=== PATIENT | male | born 1950 | race Caucasian/White ===

== ENCOUNTER 2021-11-29 | Inpatient (IN) | payer MEDICARE, SELFPAY ==
[2021-11-29] VITALS (27 sets, daily range): BP systolic 115–167; BP diastolic 65–90; PULSE 49–70; RESP 14–18; TEMP 36.6–36.7; O2SAT 93–97; BMI 35.6
[2021-11-29 02:18] LABS: Coronavirus 19, PCR Not Detected (NotDetected); Influenza A, PCR Not Detected (NotDetected); Influenza B, PCR Not Detected (NotDetected)
--- NOTE | 2021-11-29 05:21 | PC.NURSE ---
Pt arrived to floor via EMS from [facility] on Nitro gtt @ 25 mcg/min. Pt denied any CP and continues to deny any at this time. Nitro gtt titrated per protocol. It is currently on stand by at this time. BP is stable at this time. HR is bradycardic. Pt is NPO and has a cardiac consult this AM.
--- NOTE | 2021-11-29 05:22 | CA_ITS ---
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 Ht: 6 ft 2 in Wt: 308lbs BSA: 2.61 BP: 154/80 mmHg Indications: Chest Pain, Diabetes, Hyperlipidemia, Hypertension/HDD, exsmoker 2D Dimensions Aortic Root 1.86 cm LA Volume 66.40 mL LA Volume Index 25.40 mL/m2 (M/F) 16-34 M-Mode Dimensions RVDd 2.68 cm (0.9-2.6) LA Diam 4.46 cm (1.9-4.0) LVDd 5.57 cm (3.5-5.7) Ao Diam 4.74 cm (2.0-3.7) LVDs 3.52 cm (3.5-5.7) IVSd 2.44 cm (0.6-1.1) PWd 1.12 cm (0.6-1.1) EF (Teich) 66.00% FS 36.80% EDV (Teich) 151.80 mL TAPSE 2.84 (<1.7) ESV (Teich) 51.60 mL LV Diastology E Decel Time 223.00 (160-240 msec) E/A Ratio 0.74 MED E' 5.70 (< 7 cm/sec) MED A' 8.40 cm/s E'/MED E' Ratio 13.98 (>14) LAT E' 5.90 (<10 cm/sec) LAT A' 10.40 cm/s E/LAT E' Ratio 13.51 (>14) Aortic Valve LVOT Max 132.00 (70-110 cm/s) LVOT VTI 29.56 cm AoV Peak Marek. 154.00 (50-130 cm/s) AI PHT 459.00 ms AO Peak GR. 9.60 mmHg AO Mean GR. 5.30 (<5 mmHg) AO VTI 34.06 (18-25 cm) Mitral Valve MV A Velocity 108.00 (40-130 cm/s) E/A Ratio 0.74 MV Decel. Time 223.00 (160-240 ms) Pulmonary Valve PV Peak Velocity 118.00 (50-150 cm/s) Tricuspid Valve TR P. Velocity 147.00 cm/s RAP Estimate 10.00 mmHg RVSP 18.60 mmHg Left Ventricle Left atrium is mildly enlarged, left ventricle is normal size mild concentric left ventricular hypertrophy, estimated ejection fraction 55% with no regional wall motion abnormality, grade 1 diastolic dysfunction seen without tissue Doppler evidence of raise left atrial pressure. Right Ventricle Right atrium and right ventricle are mildly enlarged with normal contractility. Aortic Valve Aortic valve is thickened and calcified without aortic stenosis or aortic insufficiency. Mitral Valve Mitral valve has mitral annular calcification, leaflets are minimally thickened, there is mild mitral regurgitation. Tricuspid Valve Tricuspid grossly normal, there is mild tricuspid regurgitation, tricuspid regurgitation jet velocity is inadequate for calculation of the right ventricular systolic pressure. Pulmonic Valve Pulmonic valve is poorly visualized. Great Vessels Aortic root is normal size. Inferior vena cava is poorly visualized. Pericardium No significant pericardial effusion noted. Conclusion 1. Mild biatrial enlargement, normal left ventricular size, mild concentric left ventricular hypertrophy, estimated ejection fraction 55% with no regional wall motion abnormality, grade 1 diastolic dysfunction seen without tissue Doppler evidence of raise left atrial pressure. 2. Mildly enlarged right ventricle with normal contractility. 3. Mild mitral and tricuspid regurgitation. 4. No significant pericardial effusion noted. Electronically signed by : Abdulaziz Pickering MD 11/29/2021 13:12:06
[2021-11-29 06:23] LABS: Chol/HDL Ratio 3.8 (1-3.5); Cholesterol 121 mg/dl (140-200); HDL Cholesterol 32 mg/dl (40-60); Triglycerides 92 mg/dl (30-150); VLDL Cholesterol 18 mg/dL (0-40)
[2021-11-29 06:25] LABS: Anion Gap 10.9 mEq/L (5-15); Basophils # 0.4 K/mm3 (0-0.2); Basophils % 1.2 % (0.1-2.0); Blood Urea Nitrogen 20 mg/dl (9-20); Calcium 7.9 mg/dl (8.4-10.2); Carbon Dioxide 29 mmol/L (22.0-30.0); Chloride 102 mmol/L (98-107); Creatinine Clearance Estimated 130 mL/min (50-200); Eosinophils # 0.1 K/mm3 (0.0-0.4); Eosinophils % 0.4 % (0.1-12.0); Estimated Glomerular Filt Rate 83 ml/min (>60); GFR (African American) 100 ML/MIN (>60); Glucose 150 mg/dl (74-100); Hematocrit 41.3 % (42.0-52.0); Hemoglobin 13.3 g/dL (14.1-18.0); Lymphocytes % 79.7 % (10-50); Mean Corpuscular HGB Conc 32.3 g/dL (31.8-35.4); Mean Corpuscular Hemoglobin 29.5 pg (27.0-31.2); Mean Corpuscular Volume 91.4 fl (80-94); Monocytes # 0.6 K/mm3 (0.1-1.0); Monocytes % 1.8 % (1.7-9.3); Neutrophils # 5.5 K/mm3 (1.8-7.8); Neutrophils % 16.9 % (37.0-80.0); Platelet Count 154 K/mm3 (142-424); Potassium 3.9 mmoL/L (3.5-5.1); Red Blood Count 4.52 M/mm3 (4.60-6.20); Red Cell Distribution Width 13.4 % (11.5-17.5); Sodium 138 mmol/L (136-145); White Blood Count 32.6 K/mm3 (4.8-10.8)
[2021-11-29 06:27] LABS: MANUAL DIFFERENTIAL MANUAL DIFFERENTIAL (MANUAL DIFF)
--- NOTE | 2021-11-29 06:27 | PC.NURSE ---
Nitro currently infusing @ 10 mcg/min. See titration. 0017 arrived on 25 mcg/min 0100 20 mcg/min 0130 15 mcg/min 0230 10 mcg/min 0300 standby 0600 10 mcg/min
[2021-11-29 06:34] LABS: Direct LDL Cholesterol 72.48 mg/dL (100-129); Lymphocytes % 84 % (10-50); Neutrophils % 16 % (42-76); Platelet Estimate Normal; RBC Morphology Normal; Total Cells Counted 100
[2021-11-29 06:39] LABS: Troponin I < 0.01 ng/ml (0.00-0.034)
--- NOTE | 2021-11-29 06:58 | PC.NURSE ---
Nitro titrated to 15 mcg/min
--- NOTE | 2021-11-29 07:27 | P.CONPHA_ITS ---
[facility] Pharmacy VTE Monitoring Patient Demographics Admission date: 11/29/21 Report Date: 11/29/21 Time: 07:27 Patient Allergies No Known Allergies Allergy (Verified 11/29/21 00:51) Height: 1.98 m Weight: 139.843 kg VTE Risk Labs: VTE Related Lab Results Hgb 13.3 g/dL (14.1-18.0) L 11/29/21 05:38 Hct 41.3 % (42.0-52.0) L 11/29/21 05:38 Plt Count 154 K/mm3 (142-424) 11/29/21 05:38 BUN 20 mg/dl (9-20) 11/29/21 05:38 Creatinine 0.90 mg/dl (0.66-1.25) 11/29/21 05:38 Estimated Creat Clear 130 mL/min (50-200) 11/29/21 05:38 Prophylaxis VTE Prophylaxis Ordered?: Yes Types of VTE Prophylaxis: TEDS Knee High Location of Applied Device: Bilateral Lower Extremeties
--- NOTE | 2021-11-29 08:58 | EXP.HP ---
History of Present Illness *Admission Date: 11/29/21 *Reason for visit:: chest pain, hypertensive emergency *History of present illness: 71 yo male noted onset of substernal chest pressure and presented to [facility] ER, found to be markedly hypertensive at 240/108. Troponins negative there, was transferred to [facility] for cardiology evaluation. Denies hx coronary disease. Does have co-morbid hypertension, diabetes, hyperlipidemia, and chronic lymphocytic leukemia. His baseline WBC is in the 30 thousand range. No active treatment for this. [facility] Medical History (Updated 11/29/21 @ 11:17 by Kelly Alvarado APRN) Arrhythmia Diabetes mellitus, type 2 Hyperlipidemia Hypertension Leukemia Skin cancer Surgical History (Updated 11/29/21 @ 01:19 by Dafne De La Paz, RN) No significant past surgical history Family History (Updated 11/29/21 @ 01:21 by Dafne De La Paz, RN) Other Family history of cancer Family history of diabetes mellitus type II Family history of hyperlipidemia Family history of hypertension Family history of leukemia Family history of myocardial infarction Social History (Updated 11/29/21 @ 01:23 by Dafne De La Paz, RN) Smoking Status: Former smoker years smoked: 40 alcohol intake: former current occupational status: employed Travel in the last 8 weeks: None Review of Systems Constitutional Constitutional: Reports fatigue Eyes Eyes: Reports system reviewed and no additional complaints, except as documented ENT Ears, Nose, Mouth, and Throat: Reports system reviewed and no additional complaints, except as documented *Cardiovascular Cardiovascular: Reports chest pain and Denies syncope *Respiratory Respiratory: Reports system reviewed and no additional complaints, except as documented *Gastrointestinal Gastrointestinal: Reports system reviewed and no additional complaints, except as documented *Genitourinary Genitourinary: Reports system reviewed and no additional complaints, except as documented *Musculoskeletal Musculoskeletal: Reports system reviewed and no additional complaints, except as documented Integumentary/Breasts Skin/Breast: Reports system reviewed and no additional complaints, except as documented *Neurologic Neurologic: Reports system reviewed and no additional complaints, except as documented and Denies syncope Psychiatric Psychiatric: Reports system reviewed and no additional complaints, except as documented Endocrine Endocrine: Reports system reviewed and no additional complaints, except as documented and Reports fatigue Hematologic/Lymphatic Hematologic/Lymphatic: Reports as per HPI Allergic/Immunologic Allergic/Immunologic: Reports system reviewed and no additional complaints, except as documented Meds Home Medications and Allergies Home Medications Medication Instructions Recorded Confirmed Type carvedilol 25 mg tablet 25 mg PO BID Hypertension 11/29/21 11/29/21 History diltiazem HCl 180 mg 180 mg PO DAILY HEART RATE 11/29/21 11/29/21 History capsule,extended release 24 hr, controlled (DILT-XR) furosemide 40 mg tablet 40 mg PO DAILY Fluid 11/29/21 11/29/21 History glipizide 5 mg tablet, extended 5 mg PO BID Diabetes 11/29/21 11/29/21 History release 24 hr hydralazine 50 mg tablet 50 mg PO QID Hypertension 11/29/21 11/29/21 History metformin 500 mg tablet 1,000 mg PO BID Diabetes 11/29/21 11/29/21 History pravastatin 40 mg tablet 40 mg PO DAILY Cholesterol 11/29/21 11/29/21 History valsartan 160 mg tablet 160 mg PO DAILY Hypertension 11/29/21 11/29/21 History New Prescriptions to Start Prescriptions: Allergies Allergy/AdvReac Type Severity Reaction Status Date / Time No Known Allergies Allergy Verified 11/29/21 00:51 Exam Data for Last 24 hours Vital signs and Labs for Last 24 Hours: Temp Pulse Resp BP Pulse Ox 98.1 F 51 L 16 150/73 H 97 11/29/21 04:00 11/29/21 08:00 11/29/21 08:00 11/29/21 08:00 11/29/21 08:00 L
--- NOTE | 2021-11-29 09:06 | CA_ITS ---
FINAL REPORT CLINICAL HISTORY: HTN,DM FINDINGS: Aorta velocity: 79 cm/sec Right kidney: 12.0 cm. No evidence of hydronephrosis or mass. Right intrarenal RI: 0.59 Right renal artery velocity: 145 cm/sec. Right RAR (Renal artery-Aortic Ratio): 1.82 Left Kidney: 13.0 cm. No evidence of hydronephrosis or mass. Left intrarenal RI: 0.75 Left renal artery velocity: 82 cm/sec. Left RAR (Renal Artery-Aortic Ratio): 1.03 IMPRESSION: No evidence of significant renal artery stenosis. CT angiogram or postcontrast MR angiogram would be more sensitive for evaluation of possible renal artery stenosis. Reviewed, Interpreted and Dictated by Tucker Dias MD Transcribed by Erickson Berumen Authenticated and . [facility]
--- NOTE | 2021-11-29 10:00 | PC.NURSE ---
0940- Nitro drip dc'd per MD order, changed to cardene drip at this time, 5mg/hr, current bp 155/68 map 97, HR 49
--- NOTE | 2021-11-29 11:08 | EXP.CARD.CON ---
History of Present Illness History of Present Illness Consult date: 11/29/21 Requesting physician: Blake Clark Consult reason: chest pain Chief complaint: chest pain, htn Additional Medical History:: Past Medical Hx NIDDM HLD HTN Leukemia Chronic Venous Stasis and bilateral LE edema 1st degree av block History of present illness: 71 year old white male with above past medical hx presented to [facility] ER yesterday with complaint on midsternal chest tightness and BP elevated at 240/108 at home despite taking all meds as prescribed. Reports was in his usual state of health when developed progressive chest tightness yesterday prompting him to check BP. when noticed BP was that elevated went to ER. Upon presentation to ER EKG showed sinus tarun with 1st degree av block negative for acute ischemic changes. Trop was negative. patient was started on nitro drip and transferred to [facility] for cardiology eval. This morning BP improved to 140s and patient denies any chest pain currently. Denies soa. [facility] Medical History (Updated 11/29/21 @ 11:17 by Kelly Alvarado APRN) Arrhythmia Diabetes mellitus, type 2 Hyperlipidemia Hypertension Leukemia Skin cancer Surgical History (Updated 11/29/21 @ 01:19 by Dafne De La Paz RN) No significant past surgical history Family History (Updated 11/29/21 @ 01:21 by Dafne De La Paz RN) Other Family history of cancer Family history of diabetes mellitus type II Family history of hyperlipidemia Family history of hypertension Family history of leukemia Family history of myocardial infarction Social History (Updated 11/29/21 @ 01:23 by Dafne De La Paz RN) Smoking Status: Former smoker years smoked: 40 alcohol intake: former current occupational status: employed Travel in the last 8 weeks: None Review of Systems Review of Systems Review of systems:: pertinent systems reviewed and negative unless documented below *Cardiovascular Cardiovascular: Reports chest pain and Reports leg edema Comments: chronic lower extrmitity edema Exam Data for Last 24 hours Vital signs and Labs for Last 24 Hours: Temp Pulse Resp BP Pulse Ox 98.1 F 53 L 18 143/73 H 95 11/29/21 04:00 11/29/21 10:00 11/29/21 10:00 11/29/21 10:00 11/29/21 10:00 Laboratory Results - last 24 hr 11/29/21 02:10: SARS-CoV-2 (PCR) Not detected, Influenza A Untype (PCR) Not detected, Influenza Type B (PCR) Not detected 11/29/21 05:38: Sodium 138, Potassium 3.9, Chloride 102, Carbon Dioxide 29, Anion Gap 10.9, BUN 20, Creatinine 0.90, Estimated Creat Clear 130, Estimated GFR 83, Est GFR ( Amer) 100, Glucose 150 H, Calcium 7.9 L, Troponin I < 0.01 11/29/21 05:38: WBC 32.6 H*, RBC 4.52 L, Hgb 13.3 L, Hct 41.3 L, MCV 91.4, MCH 29.5, MCHC 32.3, RDW 13.4, Plt Count 154, MPV 8.0, Neut % (Auto) 16.9 L, Lymph % (Auto) 79.7 H, [place] % (Auto) 1.8, Eos % (Auto) 0.4, Baso % (Auto) 1.2, Neut # (Auto) 5.5, Lymph # (Auto) 26.0 H, [place] # (Auto) 0.6, Eos # (Auto) 0.1, Baso # (Auto) 0.4 H, Total Counted 100, Neutrophils % (Manual) 16 L, Lymphocytes % (Manual) 84 H, Platelet Estimate Normal, RBC Morphology Normal 11/29/21 05:38: Triglycerides 92, Cholesterol 121 L, LDL Cholesterol Direct 72.48 L, VLDL Cholesterol 18, HDL Cholesterol 32 L, Cholesterol/HDL Ratio 3.8 H I & O for Last 24 hours: Intake & Output 11/26/21 11/27/21 11/28/21 11/29/21 23:59 23:59 23:59 23:59 Intake Total Output Total 0 / 0 Balance Weight 308 lb 4.816 oz Constitutional Constitutional: no acute distress *Routine HEENT Exam Head: Present normocephalic Eye: Present EOMI and PERRL ENT: Present mucous membranes moist *Routine Neck Exam Neck: Present supple; Absent lymphadenopathy *Routine Respiratory Exam Respiratory: Present CTA bilaterally *Routine Cardiovascular Exam Comments: Tarun with 1st degree av block ntoed *Routine Abdominal Exam Abdominal: Present soft, normoactive bowel sounds and distended; Abse
--- NOTE | 2021-11-29 15:00 | PC.NURSE ---
ROUNDED ON PATIENT. NO CONCERNS OR QUESTIONS. EDUCATED ON PLAN OF CARE. ENCOURAGED THEM TO RING OUT NEEDED
--- NOTE | 2021-11-29 20:00 | PC.NURSE ---
bp 164/78, increased cardene drip to 15mg/hr (from 10mg/hr)
--- NOTE | 2021-11-29 22:00 | PC.NURSE ---
bp 132/67, decreased cardene drip to 10mg/hr
[2021-11-30] VITALS (25 sets, daily range): BP systolic 124–174; BP diastolic 52–96; PULSE 57–80; RESP 12–22; TEMP 36.6–36.9; O2SAT 92–99; BMI 35.4
--- NOTE | 2021-11-30 | IR_ITS ---
APPROVED REPORT Patient Location: Inpatient Automotive Artist: ISIDRO Henry RT (R) PROCEDURES Selective coronary angiogram4 Drug-eluting stent deployment to the proximal ramus intermedius Drug-eluting stent deployment to the proximal mid and distal first obtuse marginal artery of the circumflex artery INDICATION Unstable angina, Coronary artery disease Informed consent was obtained prior to the procedure. COMPLICATIONS None Estimated Blood Loss: Less than 10 mls TECHNIQUE One percent lidocaine used to anesthetize the right anterior aspect of the wrist. The right radial artery was accessed via the Seldinger technique. A 6 Italian sheath was placed in the right radial artery. 2.5 mg of verapamil, 800 mcg of nitroglycerin, 1mg Lidocaine and 5000 U Heparin were given through the arterial sheath. The papa catheter was also used to perform selective coronary angiogram. At the end the diagnostic angiogram therapeutic heparin was administered giving a therapeutic ACT and the guide catheter was placed in the left main artery followed by a Choice PT extra-support wire into the ramus intermedius. A 2.25 x 12 mm resolute Myles stent was deployed at 16 seth reducing the severe stenosis to 0%. MILAGROS-3 flow was present before and after the procedure. The wire was pulled back and then placed in the first obtuse marginal artery. Primary stenting with a 2.5 x 30 mm stent cannot be made. 2 mm x 12 mm noncompliant balloon cannot be advanced due to the calcified stenosis. Eventually a guide liner was required and a 1.5 x 12 mm compliant balloon was used to predilate the stenosis. This was followed by a 2 mm x 12 mm noncompliant balloon. An additional 2 mm x 12 mm noncompliant balloon was then advanced to the calcified area. The 2.5 x 30 mm Long Eddy resolute stent could not be delivered without the utilization of a guide liner. Eventually the stent was placed and deployed at 22 seth. An additional 2.5 x 12 mm resolute Myles stent was then placed distal to the stent yet still overlapping it and deployed at 20 seth. The balloon was brought back and deployed at 24 and then 28 seth. A 2.75 x 12 mm balloon followed by 3 mm x 12 mm balloon were both deployed at the area and deployed at 24 and then 20 seth failing to reduce the stenosis. A 3.25 x 8 mm noncompliant balloon was then deployed at 24 seth reducing the calcified stenosis to 0% with excellent stent expansion. MILAGROS-3 flow was present before and after the procedure. At the end of the procedure the apparatus was removed the sheath was removed and hemostasis was achieved using TR banding patient was transferred the postop putting in stable addition ANGIOGRAPHIC RESULTS The left main artery Normal The left anterior descending artery Has proximal eccentric 10% stenoses with mid vessel 20% stenoses The circumflex artery Is a codominant system and gives rise to a high ramus intermedius which has a proximal hazy 70% concentric stenosis. The first obtuse marginal artery has a proximal calcified 90% stenosis with a mid vessel 90% stenosis. This is a large vessel. The right coronary artery Is a codominant vessel and has a proximal concentric calcified 70% stenosis with additional 50 and 60% stenosis which extended to the mid segment The RUCKER ventriculogram reveals Not performed The left ventricular end-diastolic pressure Not measured IMPRESSION Coronary artery disease as described above Successful stenting of the ramus intermedius severe disease reduced to 0% with 1 drug-eluting stent Heavily calcified and recalcitrant first obtuse marginal artery stenosis which was eventually treated with high inflation balloon angioplasty and 2 contiguous drug-eluting stents reduci
--- NOTE | 2021-11-30 02:00 | PC.NURSE ---
pt's bp 124/60, decreased cardene drip to 7.5mg/hr
--- NOTE | 2021-11-30 07:09 | PC.NURSE ---
0630-bp 139/66, decreased cardene drip to 5mg/hr 0700-bp 153/75, increased cardene drip to 7.5mg/hr
--- NOTE | 2021-11-30 09:45 | EXP.CARD.PN ---
Subjective Subjective Date: 11/30/21 Time: 08:00 Principal diagnosis: htn urgency, unstable angina Interval history: BP has improved, attempting to wean off of cardene. Reports had 10 mins of chest pressure last night at rest. Plan for [facility] today. Echo 11/29/2021 Conclusion 1.? Mild biatrial enlargement, normal left ventricular size, mild concentric left ventricular hypertrophy, estimated ejection fraction 55% with no regional wall motion abnormality, grade 1 diastolic dysfunction seen without tissue Doppler evidence of raise left atrial pressure. 2.? Mildly enlarged right ventricle with normal contractility. 3.? Mild mitral and tricuspid regurgitation. 4.? No significant pericardial effusion noted. Renal artery ultrasound 11/29/2021 IMPRESSION: No evidence of significant renal artery stenosis. ? ? CT angiogram or postcontrast MR angiogram would be more sensitive for evaluation of possible renal artery stenosis. Exam Data for Last 24 hours Vital signs and Labs for Last 24 Hours: Temp Pulse Resp BP Pulse Ox 97.9 F 57 L 12 138/67 94 L 11/30/21 08:00 11/30/21 06:00 11/30/21 06:00 11/30/21 06:00 11/30/21 06:00 I & O for Last 24 hours: Intake & Output 11/27/21 11/28/21 11/29/21 11/30/21 23:59 23:59 23:59 23:59 Intake Total 1372 / 1372 1956 Output Total 800 / 800 0 / 0 Balance 572 / 572 1956 Weight 308 lb 4.816 oz 305 lb 12.8 oz Constitutional Constitutional: no acute distress *Routine HEENT Exam Head: Present normocephalic Eye: Present EOMI and PERRL ENT: Present mucous membranes moist *Routine Neck Exam Neck: Present supple; Absent lymphadenopathy *Routine Respiratory Exam Respiratory: Present CTA bilaterally *Routine Cardiovascular Exam Cardiovascular: Present RRR *Routine Abdominal Exam Abdominal: Present soft and normoactive bowel sounds; Absent tenderness *Routine Extremities Exam Extremities: Absent cyanosis, clubbing or edema *Routine Skin Exam Skin: Present warm; Absent rash *Routine Neurological Exam Neurological: Present alert and oriented X3 Progress Note: A&P Assessment and plan (1) Leukemia: Status: Acute (2) Diabetes: Status: Acute (3) HTN (hypertension): Status: Acute (4) HLD (hyperlipidemia): Status: Acute (5) Hypertensive urgency: Status: Acute (6) Unstable angina: Status: Acute Assessment and Plan Assessment and Plan for All Diagnoses:: Unstable angina in the setting of HTN urgency -Serial trops negative -EKG negative for ischemic changes -Symptoms have improved with BP control -Will continue to monitor symptoms, possible LHC later if symptoms persist or change 11/30- Patient had episode of midsternal chest pressure last night lasting about 10 mins. Will proceed with LHC today. Discussed risks vs. benefits, patient is agreeable. HTN urgency -Reports medication compliance -Renal artery duplex- negative -Nitro drip changed to cardene drip -Stop home dilt. Start valsartan 160mg QD -Hold BB due to bradycardia 11/30- Remains on cardene drip, continue to wean. anticipate increasing valsartan or diuretics, will wait until after LHC to do so depending on results of cath. Sinus Tarun -Was on dilt and Metoprolol. Patient denies hx of afib or arrhythmia. Hold Bb and Dilt. 11/30- Resolved HLD -LDL goal < 70. LDL 72. Continue statin Chronic LE edema -Echo- EF 55, DD grade 1 -Continue lasix 40mg QD Hx of Leukemia with Leukocytosis -WBC 32.6 -Will defer to primary service NIDDM -Continue Metformin -Defer to primary service. cv summary: continue to wean from cardene drip. LHC today. will adjust bp meds and diuretics post cath.
--- NOTE | 2021-11-30 09:49 | EXP.ACUTE.PN ---
Subjective *Date: 11/30/21 *Time: 10:40 Interval history: 71-year-old male patient sitting up in side of the bed, and stepdaughter present, he reports some chest pain and shortness of breath during the night. Cardene drip still infusing and attempting to wean off, current blood pressure 138/67. Renal artery duplex was negative. Plan for C today. Medical Exam Vital signs and Labs for Last 24 Hours: Temp Pulse Resp BP Pulse Ox 97.9 F 67 12 138/67 97 11/30/21 08:00 11/30/21 08:00 11/30/21 06:00 11/30/21 06:00 11/30/21 08:00 I & O for Labs for Last 24 Hours: Intake & Output 11/27/21 11/28/21 11/29/21 11/30/21 23:59 23:59 23:59 23:59 Intake Total 1372 / 1372 1956 Output Total 800 / 800 0 / 0 Balance 572 / 572 1956 Weight 308 lb 4.816 oz 305 lb 12.8 oz Head: Present atraumatic Eyes: Present as per HPI ENT: Present normal exam and mucous membranes moist Neck: Present full ROM and trachea midline Respiratory: Present accessory muscle use and CTA bilaterally Cardiac: Present Reg Rate and Rhythm GI: Present soft, tenderness and normal bowel sounds; Absent distention Extremities: Present normal inspection and full ROM; Absent tenderness or calf tenderness Skin: Present intact and dry; Absent cyanosis or jaundice Neuro: Present Cranial Nerve 2-12 Intact, Motor Function Intact and oriented x 3 Assessment and Plan *Assessment and plan (1) Sinus bradycardia: Status: Acute Category: Medical Code(s): R00.1 - Bradycardia, unspecified (2) 1st degree AV block: Status: Acute Category: Medical Code(s): I44.0 - Atrioventricular block, first degree (3) Diabetes: Status: Acute Category: Medical Code(s): E11.9 - Type 2 diabetes mellitus without complications (4) HTN (hypertension): Status: Acute Category: Medical Code(s): I10 - Essential (primary) hypertension (5) HLD (hyperlipidemia): Status: Acute Category: Medical Code(s): E78.5 - Hyperlipidemia, unspecified (6) Unstable angina: Status: Acute Category: Medical Code(s): I20.0 - Unstable angina (7) Hypertensive urgency: Status: Acute Category: Medical Code(s): I16.0 - Hypertensive urgency Assessment and plan all Dx Assessment and Plan All Dx:: 1. Plan for C today 2. Wean Cardene drip as tolerated 3. Cardiology following
--- NOTE | 2021-11-30 14:16 | PC.NURSE ---
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
--- NOTE | 2021-11-30 14:18 | PC.NURSE ---
late entry: at start of shift cardene drip was at 7.5mg/hr drip was decreased to 5mg/hr at 0945
[2021-11-30 14:24] LABS: CATHL Activated Clotting Time 319 SEC (74-125)
--- NOTE | 2021-11-30 17:44 | PC.NURSE ---
Late entry: air removed time 2ml 1600 2ml 1615 2ml 1630 2ml 1645 2ml 1700 2ml 1715 1740 band removed, incision cleansed with cholrhexadine swab and covered in telfa and tegaderm.
[2021-12-01] VITALS (8 sets, daily range): BP systolic 134–165; BP diastolic 67–82; PULSE 59–80; RESP 16–23; TEMP 36.6–36.8; O2SAT 96–99; BMI 35.9
--- NOTE | 2021-12-01 00:05 | PC.NURSE ---
bp 156/69, increased cardene drip to 7.5mg/hr
--- NOTE | 2021-12-01 07:15 | PC.NURSE ---
Cardene gtt OFF at this time due to infiltrated PIV.
--- NOTE | 2021-12-01 09:18 | EXP.CARD.PN ---
Subjective Subjective Date: 12/01/21 Time: 08:00 Principal diagnosis: htn urgency, unstable angina Interval history: s/p left heart cath, see report below. Denies chest pain or soa. BP 165/79 IMPRESSION Coronary artery disease as described above Successful stenting of the ramus intermedius severe disease reduced to 0% with 1 drug-eluting stent Heavily calcified and recalcitrant first obtuse marginal artery stenosis which was eventually treated with high inflation balloon angioplasty and 2 contiguous drug-eluting stents reducing severe to critical disease to 0% Persistent severe stenosis in the proximal mid codominant right coronary artery PLAN 1. Dual antiplatelet therapy 2. LDL less than 55 to be achieved with high intensity statin 3. Cardiac rehabilitation 4. This was a long complex case requiring lots of balloons and loss of radiation with contrast.? As a result the right coronary artery stenosis was not treated at this time.? The calcified lesion in the right coronary artery will best be treated with shockwave balloon.? Patient will be brought back to the Clinic Administrator in 2 weeks and will undergo outpatient elective shockwave lithotripsy to the right coronary artery followed by drug-eluting stenting. Exam Data for Last 24 hours Vital signs and Labs for Last 24 Hours: Temp Pulse Resp BP Pulse Ox 97.9 F 68 19 165/79 H 97 12/01/21 08:21 12/01/21 08:30 12/01/21 08:30 12/01/21 08:30 12/01/21 08:30 Laboratory Results - last 24 hr 11/30/21 13:45: Activated Clotting Time 319 H* I & O for Last 24 hours: Intake & Output 11/28/21 11/29/21 11/30/21 12/01/21 23:59 23:59 23:59 23:59 Intake Total 1372 / 1372 3668 / 3668 420 / 420 Output Total 800 / 800 901 / 1301 400 / 400 Balance 572 / 572 2767 / 2367 Weight 308 lb 4.816 oz 305 lb 12.8 oz 310 lb 11.2 oz Constitutional Constitutional: no acute distress *Routine Respiratory Exam Respiratory: Present CTA bilaterally and symmetric chest movement *Routine Cardiovascular Exam Cardiovascular: Present RRR, Normal S1 and Normal S2 *Routine Abdominal Exam Abdominal: Present soft and normoactive bowel sounds; Absent tenderness *Routine Extremities Exam Extremities: Present full ROM and normal capillary refill; Absent edema *Routine Skin Exam Skin: Present intact, dry and warm Detailed Neck Exam: Thyroids Thyroid: Absent bruit Progress Note: A&P Assessment and plan (1) Sinus bradycardia: Status: Acute (2) 1st degree AV block: Status: Acute (3) Diabetes: Status: Acute (4) HTN (hypertension): Status: Acute (5) HLD (hyperlipidemia): Status: Acute (6) Unstable angina: Status: Acute (7) Hypertensive urgency: Status: Acute Assessment and Plan Assessment and Plan for All Diagnoses:: Unstable angina in the setting of HTN urgency -Serial trops negative -EKG negative for ischemic changes -Symptoms have improved with BP control -Will continue to monitor symptoms, possible LHC later if symptoms persist or change 11/30- Patient had episode of midsternal chest pressure last night lasting about 10 mins. Will proceed with LHC today. Discussed risks vs. benefits, patient is agreeable. 12/01- s/p LHC see above. Received stent to ramus intermedius. Plan to bring back in 2 weeks to treat RCA HTN urgency -Reports medication compliance -Renal artery duplex- negative -Nitro drip changed to cardene drip -Stop home dilt. Start valsartan 160mg QD -Hold BB due to bradycardia 11/30- Remains on cardene drip, continue to wean. anticipate increasing valsartan or diuretics, will wait until after LHC to do so depending on results of cath. 12/01- Off of Cardene drip. BP 165/79. Will increase valsartan to 320mg QD. Continue Lasix 40mg BID Sinus Tarun- Resolved -Was on dilt and Metoprolol. Patient denies hx of afib or arrhythmia. Hold Bb and Dilt. 11/30- Resolved, will restart coreg 3.125 BID HLD -LDL goal < 55. LDL
--- NOTE | 2021-12-01 09:27 | EXP.DC.SUM ---
General Admission date:: 11/29/21 Discharge date: 12/01/21 HPI HPI HPI: 71 yo male noted onset of substernal chest pressure and presented to [facility] ER, found to be markedly hypertensive at 240/108. Troponins negative there, was transferred to [facility] for cardiology evaluation. Denies hx coronary disease. Does have co-morbid hypertension, diabetes, hyperlipidemia, and chronic lymphocytic leukemia. His baseline WBC is in the 30 thousand range. No active treatment for this. Hospital Course Hospital Course Hospital Course: 71 yo male noted onset of substernal chest pressure and presented to [facility] ER, found to be markedly hypertensive at 240/108. Troponins negative there, was transferred to [facility] for cardiology evaluation. Denies hx coronary disease. Does have co-morbid hypertension, diabetes, hyperlipidemia, and chronic lymphocytic leukemia. 11/30/21 Card Cath: ANGIOGRAPHIC RESULTS The left main artery Normal The left anterior descending artery Has proximal eccentric 10% stenoses with mid vessel 20% stenoses The circumflex artery Is a codominant system and gives rise to a high ramus intermedius which has a proximal hazy 70% concentric stenosis.? The first obtuse marginal artery has a proximal calcified 90% stenosis with a mid vessel 90% stenosis.? This is a large vessel. The right coronary artery Is a codominant vessel and has a proximal concentric calcified 70% stenosis with additional 50 and 60% stenosis which extended to the mid segment The RUCKER ventriculogram reveals Not performed The left ventricular end-diastolic pressure Not measured IMPRESSION Coronary artery disease as described above Successful stenting of the ramus intermedius severe disease reduced to 0% with 1 drug-eluting stent Heavily calcified and recalcitrant first obtuse marginal artery stenosis which was eventually treated with high inflation balloon angioplasty and 2 contiguous drug-eluting stents reducing severe to critical disease to 0% Persistent severe stenosis in the proximal mid codominant right coronary artery PLAN 1. Dual antiplatelet therapy 2. LDL less than 55 to be achieved with high intensity statin 3. Cardiac rehabilitation 4. This was a long complex case requiring lots of balloons and loss of radiation with contrast.? As a result the right coronary artery stenosis was not treated at this time.? The calcified lesion in the right coronary artery will best be treated with shockwave balloon.? Patient will be brought back to the [facility] in 2 weeks and will undergo outpatient elective shockwave lithotripsy to the right coronary artery followed by drug-eluting stenting. Electronically signed by : Jasiel Lauren MD? Cardiology has seen and recommends: Assessment and Plan for All Diagnoses:: Unstable angina in the setting of HTN urgency -Serial trops negative -EKG negative for ischemic changes -Symptoms have improved with BP control -Will continue to monitor symptoms, possible LHC later if symptoms persist or change 11/30- Patient had episode of midsternal chest pressure last night lasting about 10 mins. Will proceed with LHC today. Discussed risks vs. benefits, patient is agreeable. 12/01- s/p LHC see above. Received stent to ramus intermedius. Plan to bring back in 2 weeks to treat RCA HTN urgency -Reports medication compliance -Renal artery duplex- negative -Nitro drip changed to cardene drip -Stop home dilt. Start valsartan 160mg QD -Hold BB due to bradycardia 11/30- Remains on cardene drip, continue to wean. anticipate increasing valsartan or diuretics, will wait until after LHC to do so depending on results of cath. 12/01- Off of Cardene drip. BP 165/79. Will increase valsartan to 320mg QD. Continue Lasix 40mg BID Sinus Tarun- Resolved -Was on dilt and Metoprolol. Patient denies hx of afib or arrhythmia. Hold Bb and Dilt. 11/30- Resolved, will restart coreg 3.125 BID HLD -LDL goal < 55. LDL 72. Continue statin Chronic LE
--- NOTE | 2021-12-01 12:35 | HMH.PHACL ---
[facility] Oncology Research Rn Discharge Med Graphic Arts Technician: Benito Gauthier has received discharge medication counseling on the following medications: - Aspirin (take daily, monitor for any unusual bleeding, falls/hitting head should be looked at by a physician) - Brilinta (take twice daily, monitor for any unusual bleeding, falls/hitting head should be looked at by a physician) - Rosuvastatin (take daily, can cause muscle aches that do not correlate with any physical activity, previous statin was switched to this) - Valsartan (take daily, monitor for dizziness/BP) - Carvedilol (take twice daily, monitor for dizziness, dosage has been lowered from what he originally had) Patient verbalized understanding and had no additional questions except if he needs to dispose of all the other medications that had dosage changes or been discontinued. I advised patient to dispose of those medications so there is no confusion with any of the new medications.
--- NOTE | 2021-12-03 11:01 | CARE MANAGER ---
Attempted to contact patient related to hospital discharge x2. Left VM message. JOE Santos
== END 2021-12-01 12:42 | disposition home or self-care (01) | DRG 247 ==
PROVIDERS: Internal Medicine; Admitting Provider Emergency Medicine; PCP Nurse Practitioner Family; Visit Provider Emergency Medicine
PROC: 027136Z Dilation of Coronary Artery, Two Arteries with Three Drug-eluting Intraluminal Devices, Percutaneous Approach (ICD-10-PCS; principal; 2021-11-30 09:15)
DX: I25.110 Atherosclerotic heart disease of native coronary artery with unstable angina pectoris (principal); C91.10 Chronic lymphocytic leukemia of B-cell type not having achieved remission; I16.0 Hypertensive urgency; E11.9 Type 2 diabetes mellitus without complications; E78.5 Hyperlipidemia, unspecified; Z85.828 Personal history of other malignant neoplasm of skin; Z87.891 Personal history of nicotine dependence; Z79.84 Long term (current) use of oral hypoglycemic drugs; R00.1 Bradycardia, unspecified
CPT/HCPCS: 36415; 80048; 80061; 84484; 85007; 85025; 85347; 92928; 93306; 93454; 93976; 99152; 99153; C1725; C1760; C1769; C1876; C9600; C9803; J1644; Q9967; U0003; U0005

== ENCOUNTER → 2021-12-06 11:11 | Outpatient (CLI) | payer MEDICARE, SELFPAY ==
--- NOTE | 2021-12-06 11:12 | CA_ITS ---
FINAL REPORT TECHNIQUE: Graded compression, spectral analysis and ultrasound images of the venous system of the upper extremity were obtained. CLINICAL HISTORY: edema in left upper extremity, IV stick 11/28/21, IV removed 12/01/21. Pt on ASA 81 mg QD and Brilinta Pt had Lovenox in ER on 11/26/21 for LUE redness, edema and warm to touch L antecubital. FINDINGS: Venous thrombus in the left brachial vein. The jugular vein, subclavian vein, axillary vein, cephalic vein and basilic venous system are fully compressible and demonstrate no evidence of thrombosis. IMPRESSION: Left brachial vein venous thrombosis. Reviewed, Interpreted and Dictated by Alex Penaloza MD Transcribed by Erickson Berumen Authenticated and [facility]
== END ==
PROVIDERS: PCP Nurse Practitioner Family; Visit Provider Nurse Practitioner Family
DX: I10 Essential (primary) hypertension; I20.8 Other forms of angina pectoris; I44.0 Atrioventricular block, first degree; R00.1 Bradycardia, unspecified; R60.0 Localized edema; Z95.5 Presence of coronary angioplasty implant and graft; M79.602 Pain in left arm
CPT/HCPCS: 93971

== ENCOUNTER 2021-12-12 13:00 | Emergency (ER) | payer MEDICARE, SELFPAY ==
[2021-12-12] VITALS (9 sets, daily range): BP systolic 99–140; BP diastolic 46–70; PULSE 64–80; RESP 16–22; TEMP 36.6–37.1; O2SAT 96–98; BMI 38.4
--- NOTE | 2021-12-12 13:23 | XR_ITS ---
PROCEDURE INFORMATION: Exam: XR Chest Exam date and time: 12/12/2021 1:38 PM Age: 71 years old Clinical indication: Sternal or substernal pain; Prior surgery; Surgery date: 6+ months; Surgery type: Cardiac stents placed. Patient HX: Chest pain, patient is supposed to have another cardiac stent placed this coming Monday he stated. ; Additional info: Cp TECHNIQUE: Imaging protocol: Radiologic exam of the chest. Views: 1 view. COMPARISON: No relevant prior studies available. FINDINGS: Lungs: Unremarkable. No consolidation. Pleural spaces: Unremarkable. No pleural effusion. No pneumothorax. Heart/Mediastinum: Unremarkable. No cardiomegaly. Bones/joints: Unremarkable. IMPRESSION: No acute findings.
--- NOTE | 2021-12-12 13:25 | HMH.EDGENADL ---
Discharge Plan Disposition Patient Disposition: Home, Self-Care Condition: Good Prescriptions Prescriptions: No Action clopidogrel [Plavix] 75 mg tablet 75 mg PO DAILY Qty: 30 11RF Xarelto 20 mg tablet 20 mg PO DAILY Qty: 30 5RF Rx Instructions: must administer with evening meal Xarelto 15 mg tablet 15 mg PO BID 21 Days Qty: 42 0RF Rx Instructions: must administer with a meal/food metformin 500 mg tablet 1,000 mg PO BID Label Comments: TAKE 2 TABLETS BY MOUTH TWICE DAILY FOR DIABETES furosemide 40 mg tablet 40 mg PO DAILY Label Comments: TAKE 1 TABLET BY MOUTH ONCE DAILY IN THE MORNING glipizide 5 mg tablet extended release 24hr 5 mg PO BID Label Comments: TAKE 1 TABLET BY MOUTH TWICE DAILY WITH FOOD aspirin 81 mg capsule 81 mg PO DAILY Qty: 30 0RF carvedilol [Coreg] 3.125 mg tablet 3.125 mg PO BID Qty: 60 0RF Rx Instructions: must administer with a meal/food valsartan 320 mg tablet 320 mg PO DAILY Qty: 30 0RF rosuvastatin [Crestor] 40 mg tablet 40 mg PO DAILY Qty: 30 0RF Ozempic 0.25 mg or 0.5 mg(2 mg/1.5 mL) pen injector 0.25 mg SQ WEEKLY Qty: 1.5 1RF Rx Instructions: 0.25 weekly for 4 doses then 0.5 weekly Has CAD Referrals Follow up/Referrals: Mary Gauthier APRN [Primary Care Provider] - See instructions Activity Restrictions/Add. Instructions Additional Instructions/Restrictions: You have been evaluated for episodes of low blood pressure. This is likely due to the medications you take. Please check your blood pressure in the morning before taking carvedilol. It is very important that you follow-up with your primary care doctor as well as cardiology, Dr. Lauren. Return to the emergency department at once for any new or worsening symptoms, chest pain, lightheadedness, other concern Clinical Impressions Clinical Impression: Low blood pressure reading Instructions Patient Instructions: Blood Pressure Testing and Measurement Discharge ED Provider: Brunilda Welsh Adult HPI General Chief complaint: Recheck/Abnormal Lab/Rx Stated complaint: low blood pressure Time Seen by Provider: 12/12/21 13:02 Mode of Arrival: Ambulatory Source of Information: Patient Limitations: No Limitations History of Present Illness HPI narrative: 71-year-old male presenting to the emergency department with low blood pressure. Episode happened this morning. He checked his blood pressure in the morning, as he does regularly. His systolic blood pressure was less than 90. He had taken his blood pressure medication this morning, carvedilol and losartan. Checked it again a few minutes later and it was still low, less than 90. Denies feeling dizzy, lightheaded, weak. Has had sinus congestion and runny nose over the last few days, no other recent illness. No fevers, chills, rash, abdominal pain, nausea, vomiting. No changes to his medications. By arrival, blood pressure has normalized. Nothing this is ever happened before. Denies feeling lightheaded upon standing or other symptoms of orthostasis. Related Data Home Medications Medication Instructions Recorded Confirmed furosemide 40 mg tablet 40 mg PO DAILY Fluid 11/29/21 12/06/21 glipizide 5 mg tablet, extended 5 mg PO BID Diabetes 11/29/21 12/06/21 release 24 hr metformin 500 mg tablet 1,000 mg PO BID Diabetes 11/29/21 12/06/21 Previous Rx's Medication Instructions Recorded aspirin 81 mg capsule 81 mg PO DAILY #30 caps 12/01/21 carvedilol 3.125 mg tablet (Coreg) 3.125 mg PO BID #60 tabs 12/01/21 rosuvastatin 40 mg tablet (Crestor) 40 mg PO DAILY #30 tabs 12/01/21 semaglutide 0.25 mg or 0.5 mg (2 0.25 mg (0.2 mL) SQ WEEKLY #1.5 mL 12/01/21 mg/1.5 mL) subcutaneous pen injector (Ozempic) valsartan 320 mg tablet 320 mg PO DAILY #30 tabs 12/01/21 clopidogrel 75 mg tablet (Plavix) 75 mg PO DAILY #30 tabs 12/06/21 rivaroxaban 15 mg table
--- NOTE | 2021-12-12 13:37 | ECG_ITS ---
APPROVED REPORT Exam: Resting ECG HR:70 bpm ECG Measurements Heart Rate 70 AXES UT 199 P 35 QRSd 89 QRS 59 QT 387 T 71 QTc 407 Conclusion SINUS RHYTHM NORMAL ECG UNCONFIRMED REPORT Electronically signed by : Kayden Pal MD 12/12/2021 16:40:00
[2021-12-12 13:50] LABS: Coronavirus 19, PCR Not Detected (NotDetected); Influenza A, PCR Not Detected (NotDetected); Influenza B, PCR Not Detected (NotDetected)
[2021-12-12 14:00] LABS: Chloride 99 mmol/L (98-107); Sodium 139 mmol/L (136-145)
[2021-12-12 14:03] LABS: Alanine Aminotransferase 29 U/L (12-78); Albumin Level 3.8 g/dl (3.5-5.0); Albumin/Globulin Ratio 1.3 (1.1-1.8); Alkaline Phosphatase 143 U/L (38-126); Aspartate Amino Transferase 34 U/L (17-59); Basophils # 0.4 K/mm3 (0-0.2); Basophils % 1.1 % (0.1-2.0); Bilirubin,Total 0.8 mg/dl (0.2-1.3); Blood Urea Nitrogen 16 mg/dl (9-20); Carbon Dioxide 30 mmol/L (22.0-30.0); Creatinine Clearance Estimated 115 mL/min (50-200); Eosinophils # 0.2 K/mm3 (0.0-0.4); Eosinophils % 0.7 % (0.1-12.0); Estimated Glomerular Filt Rate 66 ml/min (>60); GFR (African American) 79 ML/MIN (>60); Globulin 2.9 g/dL (1.3-3.2); Hematocrit 37.8 % (42.0-52.0); Hemoglobin 12.5 g/dL (14.1-18.0); Lymphocytes # 26.3 K/mm3 (0.7-4.5); Lymphocytes % 72.6 % (10-50); Mean Corpuscular HGB Conc 33.2 g/dL (31.8-35.4); Mean Corpuscular Hemoglobin 29.8 pg (27.0-31.2); Mean Corpuscular Volume 89.9 fl (80-94); Mean Platelet Volume 7.9 fl (7.4-10.4); Monocytes % 2.8 % (1.7-9.3); Neutrophils # 8.3 K/mm3 (1.8-7.8); Neutrophils % 22.8 % (37.0-80.0); Platelet Count 200 K/mm3 (142-424); Red Cell Distribution Width 13.1 % (11.5-17.5); Total Protein,Serum 6.7 g/dl (6.3-8.2); White Blood Count 36.2 K/mm3 (4.8-10.8)
[2021-12-12 14:04] LABS: Calcium 8.2 mg/dl (8.4-10.2); Glucose 148 mg/dl (74-100)
[2021-12-12 14:06] LABS: MANUAL DIFFERENTIAL MANUAL DIFFERENTIAL (MANUAL DIFF)
[2021-12-12 14:17] LABS: Troponin I < 0.01 ng/ml (0.00-0.034)
[2021-12-12 14:20] LABS: Lymphocytes % 70 % (10-50); Monocytes % 2 % (2-9); Neutrophils % 28 % (42-76); Platelet Estimate Normal; RBC Morphology Normal; Total Cells Counted 100
[2021-12-14 14:25] LABS: Peripheral Smear Review Scanned Result
== END 2021-12-12 16:33 | disposition home or self-care (01) ==
PROVIDERS: Emergency Provider Emergency Medicine; PCP Nurse Practitioner Family
DX: R03.1 Nonspecific low blood-pressure reading (principal); Z79.85 Long-term (current) use of injectable non-insulin antidiabetic drugs; Z79.899 Other long term (current) drug therapy; E11.9 Type 2 diabetes mellitus without complications; E78.5 Hyperlipidemia, unspecified; I10 Essential (primary) hypertension; C95.90 Leukemia, unspecified not having achieved remission; Z85.828 Personal history of other malignant neoplasm of skin; Z95.5 Presence of coronary angioplasty implant and graft; Z83.3 Family history of diabetes mellitus; Z80.9 Family history of malignant neoplasm, unspecified; Z82.49 Family history of ischemic heart disease and other diseases of the circulatory system; Z83.438 Family history of other disorder of lipoprotein metabolism and other lipidemia
CPT/HCPCS: 71045; 80053; 84484; 85007; 85025; 93005; 99284; C9803; U0003; U0005

== ENCOUNTER 2021-12-14 09:15 | Day surgery (SDC) | payer MEDICARE, SELFPAY ==
[2021-12-14] VITALS (11 sets, daily range): BP systolic 117–189; BP diastolic 80–106; PULSE 60–80; RESP 18; O2SAT 94–98; BMI 38.4
--- NOTE | 2021-12-14 | IR_ITS ---
APPROVED REPORT Patient Location: Outpatient System Support Developer: ISIDRO Akhtar RT (R) PROCEDURES Selective coronary angiogram Intravascular lithotripsy to the dominant proximal mid right coronary Drug-eluting stent deployment to the proximal and mid dominant right coronary INDICATION Coronary artery disease, Recent non-ST elevation myocardial infarction Informed consent was obtained prior to the procedure. COMPLICATIONS None Estimated Blood Loss: Less than 10 mls TECHNIQUE One percent lidocaine used to anesthetize the right anterior aspect of the wrist. The right radial artery was accessed via the Seldinger technique. A 6 [place] sheath was placed in the right radial artery. 2.5 mg of verapamil, 800 mcg of nitroglycerin, 1mg Lidocaine and 5000 U Heparin were given through the arterial sheath. Therapeutic heparin was administered giving a therapeutic ACT and a Poppa guide cath was placed in the right coronary artery followed by a BMW wire. A 3.5 x 12 mm lithotripsy balloon was deployed at 4 and then 6 seth in the proximal mid right coronary artery to predilate and fragment the intravascular calcium. Following this no reflow phenomenon occurred therefore 800 mcg of intracoronary nitroglycerin was administered. A 3.5 x 38 mm resolute Myles stent was placed in the mid right coronary and deployed at 20 seth reducing the stenosis. An additional 4 mm x 22 mm resolute [place] stent was placed proximal to the first stent and deployed at 20 seth. A 4 mm x 12 mm balloon was then placed back into the right coronary artery at the overlapping drug-eluting stent site and deployed at 20 then 24 seth. The stent was advanced to the mid right and deployed at 24 seth and then brought back and deployed at 24 seth in the proximal right coronary. Excellent angiograph results were obtained with MILAGROS-3 flow being present before and after the procedure. Then the procedure the apparatus was removed the sheath was removed and hemostasis was achieved using TR banding patient was transferred to the postop putting in stable addition IMPRESSION Successful intravascular lithotripsy involving the proximal and mid dominant right coronary followed by drug-eluting stent deployment with 2 contiguous drug-eluting stents PLAN 1. Continue standard therapy for ischemic heart disease 2. Continue dual antiplatelet therapy 3. Cardiac rehab 4. Avoidance of tobacco products 5. Aggressive risk factor modification 6. LDL less than 55 to be achieved with high intensity statin Electronically signed by : Jasiel Lauren MD 12/14/2021 11:08:24
[2021-12-14 11:28] LABS: CATHL Activated Clotting Time > 400 SEC (74-125)
--- NOTE | 2021-12-14 15:28 | HMH.PHACL ---
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 PATIENT IS CURRENTLY TAKING ASPIRIN 81 MG DAILY, CARVEDILOL 3.125 MG BID, CLOPIDOGREL 75 MG DAILY, ROSUVASTATIN 40 MG DAILY, AND VALSARTAN 320 MG DAILY.
== END 2021-12-14 14:56 | disposition home or self-care (01) ==
PROVIDERS: PCP Nurse Practitioner Family; Visit Provider Internal Medicine
DX: I25.118 Atherosclerotic heart disease of native coronary artery with other forms of angina pectoris (principal); E11.9 Type 2 diabetes mellitus without complications; I10 Essential (primary) hypertension; E78.5 Hyperlipidemia, unspecified; Z79.84 Long term (current) use of oral hypoglycemic drugs; Z79.01 Long term (current) use of anticoagulants; Z95.5 Presence of coronary angioplasty implant and graft; I25.2 Old myocardial infarction
CPT/HCPCS: 0715T; 85347; 92928; 99152; 99153; C1725; C1760; C1761; C1769; C1876; C9600; J1644; Q9967

== ENCOUNTER → 2021-12-20 09:18 | Outpatient (CLI) | payer MEDICARE, SELFPAY ==
[2021-12-20 11:33] LABS: Basophils # 0.5 K/mm3 (0-0.2); Basophils % 1.3 % (0.1-2.0); Eosinophils # 0.1 K/mm3 (0.0-0.4); Eosinophils % 0.3 % (0.1-12.0); Hematocrit 40.4 % (42.0-52.0); Lymphocytes # 26.4 K/mm3 (0.7-4.5); Lymphocytes % 72.6 % (10-50); Mean Corpuscular HGB Conc 32.2 g/dL (31.8-35.4); Mean Corpuscular Hemoglobin 29.3 pg (27.0-31.2); Mean Corpuscular Volume 90.9 fl (80-94); Mean Platelet Volume 7.5 fl (7.4-10.4); Monocytes # 0.9 K/mm3 (0.1-1.0); Monocytes % 2.4 % (1.7-9.3); Neutrophils # 8.5 K/mm3 (1.8-7.8); Neutrophils % 23.4 % (37.0-80.0); Platelet Count 244 K/mm3 (142-424); Red Blood Count 4.45 M/mm3 (4.60-6.20); White Blood Count 36.3 K/mm3 (4.8-10.8)
[2021-12-20 11:50] LABS: MANUAL DIFFERENTIAL MANUAL DIFFERENTIAL (MANUAL DIFF)
[2021-12-20 12:45] LABS: Chloride 99 mmol/L (98-107)
[2021-12-20 12:46] LABS: Potassium 3.6 mmoL/L (3.5-5.1); Sodium 143 mmol/L (136-145)
[2021-12-20 12:48] LABS: Blood Urea Nitrogen 27 mg/dl (9-20); Estimated Glomerular Filt Rate 50 ml/min (>60); GFR (African American) 60 ML/MIN (>60)
[2021-12-20 12:49] LABS: Anion Gap 17.6 mEq/L (5-15); Carbon Dioxide 30 mmol/L (22.0-30.0); Glucose 175 mg/dl (74-100)
[2021-12-20 12:59] LABS: Lymphocytes % 75 % (10-50); Monocytes % 2 % (2-9); Neutrophils % 23 % (42-76); Platelet Estimate Normal; RBC Morphology Normal; Total Cells Counted 100
== END ==
PROVIDERS: Internal Medicine; PCP Nurse Practitioner Family; Visit Provider Nurse Practitioner Family
DX: I25.10 Atherosclerotic heart disease of native coronary artery without angina pectoris (principal)
CPT/HCPCS: 36415; 80048; 85007; 85025

== ENCOUNTER 2021-12-29 09:45 | Outpatient (RCR) | payer MEDICARE, SELFPAY | END 2022-01-28 10:45 | disposition home or self-care (01) | LOC: PT 09:45 | PROVIDERS: Visit Provider Internal Medicine | DX: I25.10 Atherosclerotic heart disease of native coronary artery without angina pectoris (principal); Z95.5 Presence of coronary angioplasty implant and graft | CPT/HCPCS: 93798 ==

== ENCOUNTER → 2022-01-20 09:54 | Outpatient (CLI) | payer MEDICARE, SELFPAY ==
[2022-01-20 09:58] LABS: Microscopic, Urine URINE MICROSCOPIC (MICROSCOPIC)
[2022-01-20 10:24] LABS: Basophils # 0.3 K/mm3 (0-0.2); Basophils % 1.2 % (0.1-2.0); Eosinophils # 0.2 K/mm3 (0.0-0.4); Eosinophils % 0.7 % (0.1-12.0); Hematocrit 38.8 % (42.0-52.0); Hemoglobin 12.3 g/dL (14.1-18.0); Lymphocytes # 22.5 K/mm3 (0.7-4.5); Lymphocytes % 77.1 % (10-50); Mean Corpuscular HGB Conc 31.7 g/dL (31.8-35.4); Mean Corpuscular Hemoglobin 29.8 pg (27.0-31.2); Mean Corpuscular Volume 93.9 fl (80-94); Mean Platelet Volume 7.7 fl (7.4-10.4); Monocytes # 0.5 K/mm3 (0.1-1.0); Monocytes % 1.8 % (1.7-9.3); Neutrophils # 5.6 K/mm3 (1.8-7.8); Neutrophils % 19.2 % (37.0-80.0); Platelet Count 179 K/mm3 (142-424); Red Blood Count 4.13 M/mm3 (4.60-6.20); Red Cell Distribution Width 13.9 % (11.5-17.5); White Blood Count 29.2 K/mm3 (4.8-10.8)
[2022-01-20 10:34] LABS: MANUAL DIFFERENTIAL MANUAL DIFFERENTIAL (MANUAL DIFF)
[2022-01-20 10:54] LABS: Appearance,Urine CLOUDY (Clear); Blood, Urine 3+ (Negative); Color,Urine BROWN (Yellow); Glucose,Urine (UA) Negative (Negative); Ketones,Urine Negative (Negative); Leukocyte Esterase,Urine Negative (Negative); Nitrate,Urine Negative (Negative); Protein,Urine 2+ (Negative); Specific Gravity, Urine >= 1.030 (1.005-1.030)
[2022-01-20 10:55] LABS: Anion Gap 13.2 mEq/L (5-15); Blood Urea Nitrogen 23 mg/dl (9-20); Calcium 9.5 mg/dl (8.4-10.2); Carbon Dioxide 30 mmol/L (22.0-30.0); Chloride 101 mmol/L (98-107); Estimated Glomerular Filt Rate 46 ml/min (>60); GFR (African American) 56 ML/MIN (>60); Glucose 140 mg/dl (74-100); Potassium 4.2 mmoL/L (3.5-5.1); Sodium 140 mmol/L (136-145)
[2022-01-20 11:41] LABS: Lymphocytes % 80 % (10-50); Monocytes % 3 % (2-9); Neutrophils % 17 % (42-76); Platelet Estimate Normal; RBC Morphology Normal; Total Cells Counted 100
[2022-01-20 12:02] LABS: Bilirubin,Urine 1+ (Negative)
[2022-01-20 12:03] LABS: Amorphous Sediment,Urine Trace /lpf; Bacteria,Urine Trace /lpf; RBC,Urine 50-100 #/hpf (0-3); WBC,Urine Occasional #/hpf (0-3)
== END ==
PROVIDERS: PCP Nurse Practitioner Family; Visit Provider Nurse Practitioner Family
DX: E78.2 Mixed hyperlipidemia (principal); I10 Essential (primary) hypertension; I25.118 Atherosclerotic heart disease of native coronary artery with other forms of angina pectoris; Z95.5 Presence of coronary angioplasty implant and graft; N39.0 Urinary tract infection, site not specified
CPT/HCPCS: 36415; 80048; 81001; 85007; 85025

== ENCOUNTER → 2022-02-28 12:29 | Outpatient (CLI) | payer MEDICARE, SELFPAY ==
--- NOTE | 2022-02-28 12:40 | CA_ITS ---
FINAL REPORT TECHNIQUE: Sonographic images of the veins of the left upper extremity were obtained from axilla to antecubital fossa. Additionally, images of the internal jugular vein and subclavian vein were also obtained. CLINICAL HISTORY: F/U THROMBUS OF THE LEFT BRACHIAL VEIN,PT ON XARELTO AND PLAVIX FINDINGS: The veins of the left upper extremity are compressible from axilla to antecubital fossa. Blood flow is demonstrated by both color and spectral Doppler as well. The internal jugular vein and subclavian vein are also patent. IMPRESSION: No evidence of venous thrombosis of the left upper extremity. Reviewed, Interpreted and Dictated by Mingo Garcia III, MD Transcribed by Tiffany Alves Authenticated and [facility]
== END ==
LOC: RT 12:29
PROVIDERS: PCP Nurse Practitioner Family; Visit Provider Physician Assistant
DX: I82.622 Acute embolism and thrombosis of deep veins of left upper extremity (principal)
CPT/HCPCS: 93971

== ENCOUNTER 2022-03-22 06:00 | Inpatient (IN) | payer MEDICARE, SELFPAY ==
[2022-03-22] VITALS (13 sets, daily range): BP systolic 112–146; BP diastolic 63–80; PULSE 82–117; RESP 20–32; TEMP 36.9–37.4; O2SAT 87–95; BMI 38.5; BMI 36.5
--- NOTE | 2022-03-22 05:59 | ECG_ITS ---
APPROVED REPORT Exam: Resting ECG HR:107 bpm ECG Measurements Heart Rate 107 AXES AK 175 P 67 QRSd 82 QRS -6 QT 335 T 62 QTc 397 Conclusion SINUS TACHYCARDIA NONSPECIFIC T-WAVE ABNORMALITY ABNORMAL RHYTHM ECG UNCONFIRMED REPORT Electronically signed by : Kayden Pal MD 03/22/2022 10:15:02
--- NOTE | 2022-03-22 06:04 | XR_ITS ---
PROCEDURE INFORMATION: Exam: XR Chest Exam date and time: 03/22/2022 6:22 AM Age: 71 years old Clinical indication: Shortness of breath; Sternal or substernal pain; Additional info: Chest pain, SOB, fever TECHNIQUE: Imaging protocol: Radiologic exam of the chest. Views: 1 view. COMPARISON: CR XR CHEST PORTABLE 12/12/2021 1:38 PM FINDINGS: Lungs: Right upper lobe airspace disease. Pleural spaces: Unremarkable. No pleural effusion. No pneumothorax. Heart/Mediastinum: Unremarkable. No cardiomegaly. Bones/joints: Unremarkable. IMPRESSION: Right upper lobe pneumonia. Recommend follow-up imaging to resolution.
[2022-03-22 06:15] LABS: Coronavirus 19, PCR Not Detected (NotDetected); Influenza A, PCR Not Detected (NotDetected); Influenza B, PCR Not Detected (NotDetected)
[2022-03-22 06:19] LABS: Basophils # 0.7 K/mm3 (0-0.2); Basophils % 1.4 % (0.1-2.0); Eosinophils # 0.2 K/mm3 (0.0-0.4); Eosinophils % 0.5 % (0.1-12.0); Hemoglobin 14.6 g/dL (14.1-18.0); Lymphocytes # 26.2 K/mm3 (0.7-4.5); Mean Corpuscular HGB Conc 31.8 g/dL (31.8-35.4); Mean Corpuscular Hemoglobin 29.3 pg (27.0-31.2); Mean Corpuscular Volume 92.1 fl (80-94); Mean Platelet Volume 8.1 fl (7.4-10.4); Monocytes # 0.6 K/mm3 (0.1-1.0); Monocytes % 1.4 % (1.7-9.3); Neutrophils # 18.2 K/mm3 (1.8-7.8); Neutrophils % 39.6 % (37.0-80.0); Platelet Count 199 K/mm3 (142-424); Red Blood Count 4.99 M/mm3 (4.60-6.20); Red Cell Distribution Width 13.9 % (11.5-17.5)
[2022-03-22 06:21] LABS: ABG Base Excess -5.4 mmol/L (-2.4-2.3); ABG HCO3 19.3 mmhg (22.0-26.0); ABG Oxygen Saturation 91 % (90-100); ABG PCO2 31.7 mmhg (35.0-45.0); ABG PO2 55.8 mmhg (80-100); ABG TCO2 20.3 mmhg (23-27)
[2022-03-22 06:22] LABS: White Blood Count 45.9 K/mm3 (4.8-10.8)
[2022-03-22 06:23] LABS: MANUAL DIFFERENTIAL MANUAL DIFFERENTIAL (MANUAL DIFF)
[2022-03-22 06:24] LABS: Allen's Test Acceptable; Oxygen 2LPM NC %; Source Right Radial
[2022-03-22 06:25] LABS: Alanine Aminotransferase 35 U/L (12-78); Albumin Level 3.7 g/dl (3.5-5.0); Alkaline Phosphatase 99 U/L (38-126); Anion Gap 17.3 mEq/L (5-15); Aspartate Amino Transferase 33 U/L (17-59); Bilirubin,Direct 0.7 mg/dl (0.0-0.4); Bilirubin,Indirect 1.3 mg/dL (0.0-0.9); Bilirubin,Unconjugated 1.3 mg/dL (0.0-1.1); Blood Urea Nitrogen 31 mg/dl (9-20); Calcium 8.3 mg/dl (8.4-10.2); Carbon Dioxide 21 mmol/L (22.0-30.0); Chloride 104 mmol/L (98-107); Creatinine Clearance Estimated 70 mL/min (50-200); Estimated Glomerular Filt Rate 37 ml/min (>60); GFR (African American) 45 ML/MIN (>60); Glucose 261 mg/dl (74-100); Magnesium 1.4 mg/dl (1.6-2.3); Potassium 4.3 mmoL/L (3.5-5.1); Sodium 138 mmol/L (136-145); Total Protein,Serum 6.6 g/dl (6.3-8.2)
[2022-03-22 06:30] LABS: C-Reactive Protein 234.3 mg/L (0-4)
[2022-03-22 06:40] LABS: NT Pro Brain Natriuretic Pep. 1380 pg/mL (0-125); Troponin I 0.03 ng/ml (0.00-0.034)
[2022-03-22 06:44] LABS: Procalcitonin 37.2 ng/mL (0.0-2.0)
[2022-03-22 06:45] LABS: Lactic Acid 4.5 mmol/L (0.7-2.1)
--- NOTE | 2022-03-22 06:46 | PC.NURSE ---
Dr. Clark notified of critical WBC & lactic
--- NOTE | 2022-03-22 06:48 | PC.NURSE ---
Dr. Clark at bedside
--- NOTE | 2022-03-22 06:52 | HMH.EDCP ---
Discharge Plan Disposition Patient Disposition: Admitted As Inpatient Prescriptions Prescriptions: No Action montelukast 10 mg tablet 10 mg PO DAILY guaifenesin [Mucinex] 600 mg tablet extended release 12hr 600 mg PO Q12H PRN clopidogrel [Plavix] 75 mg tablet 75 mg PO DAILY furosemide 40 mg tablet 40 mg PO DAILY Qty: 90 3RF isosorbide mononitrate 30 mg tablet extended release 24 hr 30 mg PO DAILY metoprolol succinate [Toprol XL] 25 mg tablet extended release 24 hr 25 mg PO BID rosuvastatin 40 mg tablet 40 mg PO DAILY Ozempic 0.25 mg or 0.5 mg(2 mg/1.5 mL) pen injector See Rx Instructions .ROUTE .COMPLEX Rx Instructions: INJECT 0.25 MG SUBCUTANEOUSLY ONCE A WEEK FOR 4 DOSES, THEN INCREASE TO 0.5 MG WEEKLY THEREAFTER metformin 500 mg tablet 1,000 mg PO BID Hold Instructions: Resume on 12/16/21. HOLD FOR 48 HOURS Label Comments: TAKE 2 TABLETS BY MOUTH TWICE DAILY FOR DIABETES glipizide 5 mg tablet extended release 24hr 5 mg PO BID Label Comments: TAKE 1 TABLET BY MOUTH TWICE DAILY WITH FOOD Referrals Follow up/Referrals: Mary Gauthier APRN [Primary Care Provider] - See instructions Clinical Impressions Clinical Impression: CAP (community acquired pneumonia), Diabetes, CAD (coronary artery disease), [place] coronary artery, S/P coronary artery stent placement, Severe sepsis with acute organ dysfunction, Septic shock, Chronic lymphocytic leukemia, Respiratory failure with hypoxia, NACHO (acute kidney injury) Discharge ED Provider: Blake Clark Chest Pain HPI General Chief Complaint: Chest Pain Stated Complaint: chest pain Time Seen by Provider: 03/22/22 06:45 Mode of Arrival: Family Vehicle Source of Information: Patient, Spouse and Medical Record Limitations: No Limitations Description of Symptoms (Recalled from ER Triage Doc. by RN): Pt c/o midsternal chest pain that woke him up about 0400 this morning. He is diaphoretic and skin is very warm to touch. Pt reports he felt tired and sick yesterday and stayed in bed all day (03/21). He had 2 recent heart caths November and December [address] Lauren and placed 3 stents total. 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 Pt denies fever, chills, or n/v/d. History of Present Illness HPI narrative: pt starting not feeling well yesterday and last pm had inc resp rate and has hx of cad and diabetes mellitus - pt on pamela [place] complaint: chest pain Onset (ago): day(s) Duration: constant Activity at onset: during rest Pain location: right chest Severity: moderate Associated symptoms: fever Risk Factors for CAD: Hypertension, Family Hx of CAD and Diabetes JAMI Score for Non-Stemi Age of Patient: 70-79 years old Heart Rate: 90-109 bpm Systolic Blood Pressure: 120-139 mmhg Serum Creatinine: 1.60-1.99 mg/dl CHF Kill[place] Class: I-No CHF Other Risk Factors: None Non-Stemi Risk Score: 137 Risk Stratification: 109-140 = Intermediate Ri Related Data Prior Cardiac Testing/Procedures: Stenting Home Medications Medication Instructions Recorded Confirmed glipizide 5 mg tablet, extended 5 mg PO BID Diabetes 11/29/21 03/22/22 release 24 hr metformin 500 mg tablet 1,000 mg PO BID Diabetes 11/29/21 03/22/22 guaifenesin 600 mg tablet, 600 mg PO Q12H PRN 12/20/21 03/15/22 extended release 12 hr (Mucinex) montelukast 10 mg tablet 10 mg PO DAILY 12/20/21 03/15/22 clopidogrel 75 mg tablet (Plavix) 75 mg PO DAILY antiplatlet 02/28/22 03/22/22 isosorbide mononitrate 30 mg 30 mg PO DAILY angina 03/22/22 03/22/22 tablet,extended release 24 hr metoprolol succinate 25 mg 25 mg PO BID High blood pressure 03/22/22 03/22/22 tablet,extended release 24 hr (Toprol XL) rosuvastatin 40 mg tablet 40 mg PO DAILY High cholesterol 03/22/22 03/22/22 semaglutide 0.25 mg or 0.5 mg (2 See Rx Instructions .Route 03/22/22 03/22/22 mg/1.5 mL) subcutaneous pen .COMPLEX Diabetes injector (Ozempic) P
[2022-03-22 07:06] LABS: Acetone, Serum (Rapid) None Detected (None Detect)
[2022-03-22 07:10] LABS: Differential Comment SEE COMMEN; Lymphocytes % 42 % (10-50); Neutrophils % 58 % (42-76); Total Cells Counted 100
[2022-03-22 07:11] LABS: Platelet Estimate Normal; RBC Morphology Normal
--- NOTE | 2022-03-22 07:31 | PC.NURSE ---
called house sup for admission
--- NOTE | 2022-03-22 07:33 | PC.NURSE ---
Spoke with Rosie in Registration to place patient in a bed assignment.
--- NOTE | 2022-03-22 07:34 | PC.NURSE ---
0746-checked on pt at this time, pt aware he is being admitted for pneumonia. Pt states no needs at this time, family at bs
[2022-03-22 07:51] LABS: Erythrocyte Sedimentation Rate 55 mm/hr (0-20)
--- NOTE | 2022-03-22 07:58 | PC.NURSE ---
attempted to call report x2
--- NOTE | 2022-03-22 08:11 | PC.NURSE ---
called report to receiving RN on med/surg
--- NOTE | 2022-03-22 08:31 | PC.NURSE ---
notified receiving RN of abx changes made by pharmacy
--- NOTE | 2022-03-22 08:44 | PC.NURSE ---
Pt arrived to the floor at this time.
--- NOTE | 2022-03-22 09:24 | EXP.PHA.CONS ---
Pharmacy Consult Date: 03/22/22 Time: 09:24 Referring provider: JANINA Reason for Consult:: PHARMACY CONSULTED TO MANAGE VANCOMYCIN THERAPY Allergies Allergy/AdvReac Type Severity Reaction Status Date / Time No Known Allergies Allergy Verified 03/15/22 13:16 Home Medications Medication Instructions Recorded Confirmed Type glipizide 5 mg tablet, extended 5 mg PO BID Diabetes 11/29/21 03/22/22 History release 24 hr metformin 500 mg tablet 1,000 mg PO BID Diabetes 11/29/21 03/22/22 History montelukast 10 mg tablet 10 mg PO PM Allergy symptoms 12/20/21 03/22/22 History clopidogrel 75 mg tablet (Plavix) 75 mg PO DAILY antiplatlet 02/28/22 03/22/22 History furosemide 40 mg tablet 40 mg PO DAILY Fluid #90 tabs 02/28/22 03/22/22 Rx isosorbide mononitrate 30 mg 30 mg PO DAILY Chest pain 03/22/22 03/22/22 History tablet,extended release 24 hr metoprolol succinate 25 mg 25 mg PO BID High blood pressure 03/22/22 03/22/22 History tablet,extended release 24 hr (Toprol XL) rivaroxaban 2.5 mg tablet (Xarelto) 2.5 mg PO BID Blood thinner 03/22/22 03/22/22 History rosuvastatin 40 mg tablet 40 mg PO HS High cholesterol 03/22/22 03/22/22 History semaglutide 0.25 mg or 0.5 mg (2 See Rx Instructions .Route 03/22/22 03/22/22 History mg/1.5 mL) subcutaneous pen .COMPLEX Diabetes injector (Ozempic) New Prescriptions to Start Prescriptions: Height: 1.88 m Weight: 136.078 kg Laboratory Results:: Laboratory Results - last 24 hr 03/22/22 06:00: WBC 45.9 H*, RBC 4.99, Hgb 14.6, Hct 46.0, MCV 92.1, MCH 29.3, MCHC 31.8, RDW 13.9, Plt Count 199, MPV 8.1, Neut % (Auto) 39.6, Lymph % (Auto) 57.0 H, [place] % (Auto) 1.4 L, Eos % (Auto) 0.5, Baso % (Auto) 1.4, Neut # (Auto) 18.2 H, Lymph # (Auto) 26.2 H, [place] # (Auto) 0.6, Eos # (Auto) 0.2, Baso # (Auto) 0.7 H, Total Counted 100, Neutrophils % (Manual) 58, Lymphocytes % (Manual) 42, Differential Comment See commen, Platelet Estimate Normal, RBC Morphology Normal, ESR 55 H 03/22/22 06:00: Sodium 138, Potassium 4.3, Chloride 104, Carbon Dioxide 21 L, Anion Gap 17.3 H, BUN 31 H, Creatinine 1.80 H, Estimated Creat Clear 70, Estimated GFR 37 L, Est GFR ( Amer) 45 L, Glucose 261 H, Calcium 8.3 L, Magnesium 1.4 L, Total Bilirubin 2.0 H, Direct Bilirubin 0.7 H, Conjugated Bilirubin 0.0, Indirect Bilirubin 1.3 H, Unconjugated Bilirubin 1.3 H, AST 33, ALT 35, Alkaline Phosphatase 99, Troponin I 0.03, C-Reactive Protein 234.3 H, NT-Pro-B Natriuret Pep 1380 H, Total Protein 6.6, Albumin 3.7, Procalcitonin 37.2 H 03/22/22 06:00: Lactate 4.5 H 03/22/22 06:00: SARS-CoV-2 (PCR) Not detected, Influenza A Untype (PCR) Not detected, Influenza Type B (PCR) Not detected 03/22/22 06:00: Acetone Level None detected 03/22/22 06:04: Specimen Source Right radial, O2 % 2lpm nc, ABG pH 7.40, ABG pCO2 31.7 L, ABG pO2 55.8 L, ABG HCO3 19.3 L, ABG Total CO2 20.3 L, ABG O2 Saturation 91, ABG Base Excess -5.4 L, José Test Acceptable Medical History: Medical History (Updated 03/22/22 @ 07:07 by Blake Clark MD) Arrhythmia Chronic edema Diabetes mellitus, type 2 Edema of left upper arm Hyperlipidemia Hypertension Leukemia Skin cancer Assessment and Plan Assessment and plan all Dx Assessment and Plan for all problems:: PT ADMITTED WITH PNEUMONIA/POSSIBLE SEPSIS. PT WILL RECEIVE CEFEPIME 2 GM EVERY 8 HOURS AND VANCOMYCIN 2GM EVERY 24 HOURS. PHARMACY WILL FOLLOW DAILY UNTIL VANCOMYCIN DISCONTINUED
[2022-03-22 09:38] LABS: Lactate Arterial 3.3 mmol/L (0.4-2.0)
[2022-03-22 09:43] LABS: Troponin I 0.03 ng/ml (0.00-0.034)
[2022-03-22 10:12] LABS: Reflex Lactic Add Lactic Reflex
--- NOTE | 2022-03-22 11:20 | EXP.HP ---
History of Present Illness *Admission Date: 03/22/22 *Reason for visit:: Chest pain, SOA *History of present illness: Mr. Gauthier is a 71-year-old male with history of Beatties, coronary artery disease, hypertension, who presented to the ER this morning with complaint of chest pain. Noted to be diaphoretic, short of breath. States he felt tired and sick yesterday and stayed in bed all day. Has a recent history of 2 heart caths in November and December with 3 total stents placed. On arrival to the ER, patient's vitals were abnormal with tachycardia and tachypnea. Requiring supplemental oxygen. Initial labs concerning for elevated white cell count, elevated lactate. Chest imaging positive for right upper lobe pneumonia/airspace disease. Patient's symptoms and lab findings trigger criteria for severe sepsis/septic shock (lactate greater than 4). Started on fluid resuscitation and broad-spectrum antibiotics. Medicine consulted for admission. After arriving to the floor, patient denies having much of a cough prior to today. His at bedside supplements history. He has felt bad for at least 24 to 48 hours. Denies any nausea, vomiting, confusion, diarrhea. Feeling a little better since getting fluids. Has had very little urine output in the past 24 hours. [facility] Disclaimer: The information contained in this section may have been updated after the patient was seen, as this information can be updated by other users. Medical History Arrhythmia Chronic edema Diabetes mellitus, type 2 Edema of left upper arm Hyperlipidemia Hypertension Leukemia Skin cancer Surgical History History of cardiac cath History of coronary artery stent placement No significant past surgical history S/P coronary artery stent placement Family History Colon cancer Family/Other Family history of cancer Family history of leukemia Family history of hypertension Family history of diabetes mellitus type II Family history of myocardial infarction Family/Other Lung cancer Family/Other Family history of hyperlipidemia Social History Smoking Status: Former smoker years smoked: 40 alcohol intake: former current occupational status: employed Travel in the last 8 weeks: None caregiver/support person: Yes household members: spouse housing: house lives independently: Yes marital status: Review of Systems Review of Systems Review of systems (narrative): 14 point review of systems performed, pertinent positives and negatives as per [facility] Meds Home Medications and Allergies Home Medications Medication Instructions Recorded Confirmed Type glipizide 5 mg tablet, extended 5 mg PO BID Diabetes 11/29/21 03/22/22 History release 24 hr montelukast 10 mg tablet 10 mg PO PM Allergy symptoms 12/20/21 03/22/22 History clopidogrel 75 mg tablet (Plavix) 75 mg PO DAILY antiplatlet 02/28/22 03/22/22 History furosemide 40 mg tablet 40 mg PO DAILY Fluid #90 tabs 02/28/22 03/22/22 Rx isosorbide mononitrate 30 mg 30 mg PO DAILY Hypertension 03/22/22 03/22/22 History tablet,extended release 24 hr metformin 500 mg tablet 1,000 mg PO BID Diabetes 03/22/22 03/22/22 History metoprolol succinate 25 mg 25 mg PO BID Hypertension 03/22/22 03/22/22 History tablet,extended release 24 hr (Toprol XL) rivaroxaban 2.5 mg tablet (Xarelto) 2.5 mg PO BIDWMEAL CAD 03/22/22 03/22/22 History rosuvastatin 40 mg tablet 40 mg PO HS Cholesterol 03/22/22 03/22/22 History semaglutide 0.25 mg or 0.5 mg (2 0.25 mg SQ WEEKLY Diabetes 03/22/22 03/22/22 History mg/1.5 mL) subcutaneous pen injector (Ozempic) New Prescriptions to Start Prescriptions: Allergies Allergy/AdvReac Type Severity Reaction Status Date / Time No Known Allergies
[2022-03-22 12:11] LABS: POC Glucose,Bedside 257 (70-110)
--- NOTE | 2022-03-22 12:14 | HMH.PHAINT1 ---
Pharmacy Intervention Comments: MEDICATION RECONCILIATION COMPLETED ON PATIENT USING EXTERNAL FILL HISTORY FROM PHARMACY AND LIST FROM CARDIOLOGY OFFICE. -DAIANA RENO, DESHAWND
[2022-03-22 12:44] LABS: Reflex Lactic (2 hrs) Add Lactic Reflex
[2022-03-22 13:08] LABS: Troponin I 0.03 ng/ml (0.00-0.034)
[2022-03-22 13:49] LABS: Lactic Acid Follow up (RFLX 2) 3.4 mmol/L (0.7-2.1)
--- NOTE | 2022-03-22 15:40 | PC.NURSE ---
Dr. Nicole at bedside. Notified of low urine output and poor oral intake. Order received for continuous IV fluids.
[2022-03-22 16:16] LABS: POC Glucose,Bedside 230 (70-110)
--- NOTE | 2022-03-22 16:49 | PC.NURSE ---
Patient with continued dyspnea and tachypnea while at rest which increases with exertion. On 3L O2 via nasal cannula with O2 sats low 91-92%. LR @ 125ml/hr. Voiding via urinal. Denies chest pain. at bedside throughout day.
--- NOTE | 2022-03-22 16:51 | EXP.SEPSISRE ---
[facility] Tissue Perfusion Eval Sepsis Re-Evaluation Performed: Yes Date Performed: 03/22/22 Time Performed: 09:20
[2022-03-22 18:01] LABS: Chloride 103 mmol/L (98-107); Sodium 136 mmol/L (136-145)
[2022-03-22 18:02] LABS: Potassium 4.1 mmoL/L (3.5-5.1)
[2022-03-22 18:05] LABS: Anion Gap 12.1 mEq/L (5-15); Blood Urea Nitrogen 37 mg/dl (9-20); Calcium 7.8 mg/dl (8.4-10.2); Carbon Dioxide 25 mmol/L (22.0-30.0); Creatinine Clearance Estimated 63 mL/min (50-200); Estimated Glomerular Filt Rate 35 ml/min (>60); GFR (African American) 42 ML/MIN (>60); Glucose 273 mg/dl (74-100)
[2022-03-22 19:11] LABS: Hemoglobin A1C 7.9 % (4.0-6.0)
[2022-03-22 20:57] LABS: POC Glucose,Bedside 224 (70-110)
[2022-03-23] VITALS (8 sets, daily range): BP systolic 130–156; BP diastolic 69–97; PULSE 65–77; RESP 16–20; TEMP 36.6–37.3; O2SAT 94–99; BMI 36.6
[2022-03-23 05:28] LABS: POC Glucose,Bedside 157 (70-110)
--- NOTE | 2022-03-23 06:04 | PC.NURSE ---
Patient is still on 3L NC, SOB upon exertion. Patient denies any chest pain. LR @ 125. Patient is voiding in urinal at bedside.
[2022-03-23 06:55] LABS: Basophils # 0.3 K/mm3 (0-0.2); Basophils % 0.9 % (0.1-2.0); Eosinophils # 0.1 K/mm3 (0.0-0.4); Eosinophils % 0.4 % (0.1-12.0); Hematocrit 36.9 % (42.0-52.0); Hemoglobin 11.4 g/dL (14.1-18.0); Lymphocytes # 18.7 K/mm3 (0.7-4.5); Lymphocytes % 56.9 % (10-50); Mean Corpuscular Hemoglobin 28.7 pg (27.0-31.2); Mean Corpuscular Volume 92.8 fl (80-94); Mean Platelet Volume 8.2 fl (7.4-10.4); Monocytes # 0.6 K/mm3 (0.1-1.0); Monocytes % 1.9 % (1.7-9.3); Neutrophils # 13.1 K/mm3 (1.8-7.8); Neutrophils % 39.9 % (37.0-80.0); Platelet Count 169 K/mm3 (142-424); Red Blood Count 3.98 M/mm3 (4.60-6.20); Red Cell Distribution Width 13.9 % (11.5-17.5); White Blood Count 32.9 K/mm3 (4.8-10.8)
[2022-03-23 07:01] LABS: MANUAL DIFFERENTIAL MANUAL DIFFERENTIAL (MANUAL DIFF)
[2022-03-23 07:09] LABS: Alanine Aminotransferase 17 U/L (12-78); Albumin Level 3.1 g/dl (3.5-5.0); Albumin/Globulin Ratio 1.2 (1.1-1.8); Alkaline Phosphatase 87 U/L (38-126); Anion Gap 10.9 mEq/L (5-15); Aspartate Amino Transferase 31 U/L (17-59); Blood Urea Nitrogen 35 mg/dl (9-20); Carbon Dioxide 25 mmol/L (22.0-30.0); Chloride 106 mmol/L (98-107); Creatinine Clearance Estimated 71 mL/min (50-200); Estimated Glomerular Filt Rate 40 ml/min (>60); GFR (African American) 48 ML/MIN (>60); Globulin 2.6 g/dL (1.3-3.2); Glucose 180 mg/dl (74-100); Magnesium 2.2 mg/dl (1.6-2.3); Potassium 3.9 mmoL/L (3.5-5.1); Sodium 138 mmol/L (136-145); Total Protein,Serum 5.7 g/dl (6.3-8.2)
--- NOTE | 2022-03-23 07:28 | EXP.ACUTE.PN ---
Subjective *Date: 03/23/22 *Time: 16:42 Interval history: No acute events overnight. Improving clinically. Stable on 3 L nasal cannula. Tolerating p.o. intake this morning. Increased urine output. Bowel movement yesterday. Family at bedside feels he looks better. Denies chest pain, headache, confusion, nausea or vomiting, diarrhea, worsening shortness of breath Medical Exam Vital signs and Labs for Last 24 Hours: Vital Signs Temp Pulse Pulse Resp BP BP Pulse Ox 03/23/22 04:00 98.3 F 75 20 155/86 H 96 03/23/22 00:37 97.9 F 77 19 138/76 99 03/22/22 20:00 98.5 F 91 H 20 146/76 H 94 L 03/22/22 18:56 03/22/22 16:25 98.4 F 90 28 H 125/80 92 L 03/22/22 13:20 91 H 28 H 136/73 92 L 03/22/22 09:30 20 03/22/22 08:00 98.4 F 84 26 H 136/72 95 03/22/22 08:18 99.4 F 82 20 123/63 03/22/22 08:01 24 123/63 94 L 03/22/22 07:30 97 H 29 H 93 L FiO2 03/23/22 04:00 03/23/22 00:37 03/22/22 20:00 03/22/22 18:56 32 03/22/22 16:25 03/22/22 13:20 03/22/22 09:30 03/22/22 08:00 03/22/22 08:18 03/22/22 08:01 03/22/22 07:30 Intake and Output 03/22/22 03/22/22 03/23/22 15:59 23:59 07:59 Intake Total 480 / 2180 1700 / 2180 Output Total 200 / 800 600 / 800 200 / 200 Balance 280 / 1380 1100 / 1380 -200 / -200 Intake: Intake, Oral Amount 480 / 530 50 / 530 Infusion Intake 1650 / 1650 Cefepime HCl 2 gm In 0.9 % 100 / 100 Sodium Chloride 100 ml @ 200 mls/hr IV Q8H [facility] Rx#:[id number] Magnesium Sulfate in Water 2 gm 50 / 50 In 50 ml @ 50 mls/hr IV ONCE ONE Rx#:[id number] Ringers Solution,Lactated 1,000 250 / 250 ml @ 125 mls/hr IV .Q8H [facility] Rx #:[id number] Ringers Solution,Lactated 1,000 1000 / 1000 ml @ 999 mls/hr IV .Q1H1M [facility] Rx#:[id number] Vancomycin HCl 2,000 mg In 0.9 250 / 250 % Sodium Chloride 250 ml @ 125 mls/hr IV Q24H [facility] Rx#:[id number] Output: Output, Urine Amount 200 / 800 600 / 800 200 / 200 Other: Number of Voids 0 0 Number of Unmeasured Voids 0 Weight 129.047 kg 129.727 kg Patient Weight 03/23/22 23:59 Weight 129.727 kg Laboratory Results - last 24 hr 03/22/22 06:00: ESR 55 H 03/22/22 09:03: Troponin I 0.03 03/22/22 09:03: ABG Lactate 3.3 H 03/22/22 10:40: Lactate 3.0 H 03/22/22 11:58: POC Glucose 257 H 03/22/22 12:23: Troponin I 0.03 03/22/22 13:25: Lactate 3.4 H 03/22/22 16:08: POC Glucose 230 H 03/22/22 17:27: Sodium 136, Potassium 4.1, Chloride 103, Carbon Dioxide 25, Anion Gap 12.1, BUN 37 H, Creatinine 1.90 H, Estimated Creat Clear 63, Estimated GFR 35 L, Est GFR ( Amer) 42 L, Glucose 273 H, Calcium 7.8 L 03/22/22 17:27: Hemoglobin A1c 7.9 H 03/22/22 20:49: POC Glucose 224 H 03/23/22 05:19: POC Glucose 157 H 03/23/22 06:40: WBC 32.9 H* D, RBC 3.98 L, Hgb 11.4 L, Hct 36.9 L, MCV 92.8, MCH 28.7, MCHC 31.0 L, RDW 13.9, Plt Count 169, MPV 8.2, Neut % (Auto) 39.9, Lymph % (Auto) 56.9 H, [place] % (Auto) 1.9, Eos % (Auto) 0.4, Baso % (Auto) 0.9, Neut # (Auto) 13.1 H, Lymph # (Auto) 18.7 H, [place] # (Auto) 0.6, Eos # (Auto) 0.1, Baso # (Auto) 0.3 H 03/23/22 06:40: Sodium 138, Potassium 3.9, Chloride 106, Carbon Dioxide 25, Anion Gap 10.9, BUN 35 H, Creatinine 1.70 H, Estimated Creat Clear 71, Estimated GFR 40 L, Est GFR ( Amer) 48 L, Glucose 180 H D, Calcium 8.0 L, Magnesium 2.2 D, Total Bilirubin 1.0, AST 31, ALT 17 D, Alkaline Phosphatase 87, Total Protein 5.7 L, Albumin 3.1 L D, Globulin 2.6, Albumin/Globulin Ratio 1.2 I & O for Labs for Last 24 Hours: Intake & Output 03/20/22 03/21/22 03/22/22 03/23/22 23:59 23:59 23:59 23:59 Intake Total 2180 / 2180 Output Total 800 / 800 200 / 200 Balance 1380 / 1380 -200 / -200 Weight 129.047 kg 129.727 kg Microbiology Reports for the Last 24 Hours: Microbiology 03/22/22 09:00 Sputum - Expectorated Sputum Gram Stain -
[2022-03-23 07:53] LABS: Lymphocytes % 57 % (10-50); Neutrophils % 43 % (42-76); Platelet Estimate Normal; RBC Morphology Normal; Total Cells Counted 100
[2022-03-23 11:36] LABS: POC Glucose,Bedside 194 (70-110)
[2022-03-23 16:44] LABS: POC Glucose,Bedside 181 (70-110)
--- NOTE | 2022-03-23 18:12 | PC.NURSE ---
IV fluid totals were not cleared out from previous shift
[2022-03-23 20:06] LABS: POC Glucose,Bedside 215 (70-110)
[2022-03-24 04:00] VITALS: BP 150/84; PULSE 67; RESP 18; TEMP 36.6; O2SAT 98; BMI 37.5
[2022-03-24 05:54] LABS: POC Glucose,Bedside 180 (70-110)
--- NOTE | 2022-03-24 06:12 | PC.NURSE ---
PATIENT HAS HAD A QUIET NIGHT. NO COMPLAINTS OF SOA/PAIN OR DISCOMFORT. HAS REQUIRED S/S HUMALOG INSULIN FOR [id number] AND 180. 02 AT 3LNC, 02 SATS 98%. SPOUSE AT THE BEDSIDE.
[2022-03-24 07:44] LABS: Basophils # 0.2 K/mm3 (0-0.2); Basophils % 0.7 % (0.1-2.0); Eosinophils # 0.1 K/mm3 (0.0-0.4); Eosinophils % 0.3 % (0.1-12.0); Hematocrit 37.4 % (42.0-52.0); Hemoglobin 11.6 g/dL (14.1-18.0); Lymphocytes % 63.1 % (10-50); Mean Corpuscular Volume 93.7 fl (80-94); Mean Platelet Volume 8.5 fl (7.4-10.4); Monocytes # 0.7 K/mm3 (0.1-1.0); Monocytes % 2.5 % (1.7-9.3); Neutrophils # 9.5 K/mm3 (1.8-7.8); Neutrophils % 33.5 % (37.0-80.0); Platelet Count 176 K/mm3 (142-424); White Blood Count 28.5 K/mm3 (4.8-10.8)
[2022-03-24 07:47] LABS: MANUAL DIFFERENTIAL MANUAL DIFFERENTIAL (MANUAL DIFF)
[2022-03-24 07:49] LABS: Anion Gap 10.8 mEq/L (5-15); Blood Urea Nitrogen 30 mg/dl (9-20); Calcium 8.1 mg/dl (8.4-10.2); Carbon Dioxide 26 mmol/L (22.0-30.0); Chloride 105 mmol/L (98-107); Creatinine Clearance Estimated 88 mL/min (50-200); Estimated Glomerular Filt Rate 50 ml/min (>60); GFR (African American) 60 ML/MIN (>60); Glucose 189 mg/dl (74-100); Magnesium 2.3 mg/dl (1.6-2.3); Potassium 3.8 mmoL/L (3.5-5.1); Sodium 138 mmol/L (136-145)
[2022-03-24 07:50] VITALS: BP 157/79; PULSE 69; RESP 18; TEMP 36.5; O2SAT 95
[2022-03-24 08:00] VITALS: O2SAT 93
[2022-03-24 08:10] LABS: Differential Comment SEE COMMEN; Lymphocytes % 57 % (10-50); Monocytes % 2 % (2-9); Neutrophils % 41 % (42-76); Platelet Estimate Normal; RBC Morphology Normal; Total Cells Counted 100
--- NOTE | 2022-03-24 08:51 | EXP.DC.SUM ---
General Admission date:: 03/22/22 Discharge date: 03/24/22 HPI HPI HPI: Mr. Gauthier is a 71-year-old male with history of Beatties, coronary artery disease, hypertension, who presented to the ER this morning with complaint of chest pain. Noted to be diaphoretic, short of breath. States he felt tired and sick yesterday and stayed in bed all day. Has a recent history of 2 heart caths in November and December with 3 total stents placed. On arrival to the ER, patient's vitals were abnormal with tachycardia and tachypnea. Requiring supplemental oxygen. Initial labs concerning for elevated white cell count, elevated lactate. Chest imaging positive for right upper lobe pneumonia/airspace disease. Patient's symptoms and lab findings trigger criteria for severe sepsis/septic shock (lactate greater than 4). Started on fluid resuscitation and broad-spectrum antibiotics. Medicine consulted for admission. After arriving to the floor, patient denies having much of a cough prior to today. His at bedside supplements history. He has felt bad for at least 24 to 48 hours. Denies any nausea, vomiting, confusion, diarrhea. Feeling a little better since getting fluids. Has had very little urine output in the past 24 hours. Hospital Course Hospital Course Hospital Course: 71-year-old male with history of CLL who presented with symptoms consistent with septic shock (lactate >4, tachycardia, tachypnea, elevated white count) secondary to community-acquired pneumonia.? Clinically improving over the past 24 hours.? Seeing improvement in creatinine, white cell count back to baseline (mid 30k range), tolerating p.o. intake, weaned oxygen to room air. Saturation on room air this morning 93%. Stable for discharge home. Problems addressed as follows: Septic shock, resolved Pneumonia NACHO -Initiated on septic protocol with IV fluids, oxygen, cultures per protocol. Chest imaging concerning for right upper lobe pneumonia. Started on empiric antibiotics with vancomycin and cefepime. Tolerated well with improvement in symptoms. Fever defervesced. Gradually weaned oxygen to room air by day of discharge. Saturations in the low 90s on room air at rest. Initial presentation with NACHO, improved to baseline by day of discharge. Would benefit from repeat labs in a week to monitor for stability and continued improvement. Plan to discharge home to complete course of empiric antibiotics with Levaquin daily for his pneumonia. Patient states he is feeling significantly better. Respiratory culture positive for Enterobacter. Sensitive to fluoroquinolones. Diabetes -On Ozempic and oral therapy at home. Treated with sliding scale insulin during admission. A1c 7.9, diabetes fairly well controlled but would recommend goal less than 7.? Recommend reevaluating regimen in the outpatient setting CLL - Diagnosed several years ago, currently monitored. No treatment at this time. Leukocytosis significantly elevated on admission, improved to 28K on day of discharge. Complicates risk for worsening clinical course.? Monitor closely. Recommend close follow-up Obesity, complicates all aspects of his care CAD: Recent heart stents, continue Plavix and aspirin. Exam Data for Last 24 hours Vital signs and Labs for Last 24 Hours: Temp Pulse Resp BP Pulse Ox FiO2 97.7 F 69 18 157/79 H 93 L 32 03/24/22 07:50 03/24/22 07:50 03/24/22 07:50 03/24/22 07:50 03/24/22 08:00 03/22/22 18:56 Laboratory Results - last 24 hr 03/23/22 11:29: POC Glucose 194 H 03/23/22 16:37: POC Glucose 181 H 03/23/22 19:56: POC Glucose 215 H 03/24/22 05:47: POC Glucose 180 H 03/24/22 06:52: WBC 28.5 H*, RBC 4.00 L, Hgb 11.6 L, Hct 37.4 L, MCV 93.7, MCH 29.0, MCHC 31.0 L, RDW 14.0, Plt Count 176, MPV 8.5, Neut % (Auto) 33.5 L, Lymph % (Auto) 63.1 H, [place] % (Auto) 2.5, Eos % (Auto) 0.3, Baso % (Auto) 0.7, Neut # (Auto) 9.5 H, Lymph # (Auto) 18.0 H, [place] # (Auto) 0.7, Eos # (Auto) 0.1, Ba
[2022-03-24 08:55] LABS: Vancomycin,Trough 7.2 ug/mL (5.0-10.0)
[2022-03-24 11:09] VITALS: BP 167/71; PULSE 64; RESP 17; TEMP 36.8; O2SAT 94
--- NOTE | 2022-03-24 11:28 | P.CONPHA_ITS ---
Pharmacy Intervention Comments: Met with patient and family to eap counselor on discharge medications prior to discharge. Discussed new levofloxacin and continued medications. Overviewed indications, possible adverse effects, and mitigation strategies for each. Both learners verbalized understanding of the information provided and had no ques tions or concerns at this time. -Lakisha Howard, PharmD Candidate 2022
--- NOTE | 2022-03-24 11:28 | HMH.PHAINT1 ---
Pharmacy Intervention Comments: Met with patient and family to group home counselor on discharge medications prior to discharge. Discussed new levofloxacin and continued medications. Overviewed indications, possible adverse effects, and mitigation strategies for each. Both learners verbalized understanding of the information provided and had no questions or concerns at this time. -Lakisha Howard, PharmD Candidate 2022
[2022-03-24 23:48] LABS: Peripheral Smear Review Scanned Result
== END 2022-03-24 12:10 | disposition home or self-care (01) | DRG 871 ==
LOC: ER 07:05 → 2ND 08:19
PROVIDERS: Admitting Provider Internal Medicine Adolescent Medicine; Emergency Provider Emergency Medicine; PCP Nurse Practitioner Family; Visit Provider Internal Medicine Adolescent Medicine
DX: A41.9 Sepsis, unspecified organism (principal); J18.9 Pneumonia, unspecified organism; R65.21 Severe sepsis with septic shock; I82.622 Acute embolism and thrombosis of deep veins of left upper extremity; N17.9 Acute kidney failure, unspecified; C91.10 Chronic lymphocytic leukemia of B-cell type not having achieved remission; E11.9 Type 2 diabetes mellitus without complications; E78.5 Hyperlipidemia, unspecified; Z85.828 Personal history of other malignant neoplasm of skin; Z95.5 Presence of coronary angioplasty implant and graft; Z87.891 Personal history of nicotine dependence; I25.10 Atherosclerotic heart disease of native coronary artery without angina pectoris; Z79.84 Long term (current) use of oral hypoglycemic drugs; E66.9 Obesity, unspecified; Z68.37 Body mass index [BMI] 37.0-37.9, adult
CPT/HCPCS: 36415; 71045; 80048; 80053; 80076; 80202; 82009; 82803; 82962; 83036; 83605; 83735; 83880; 84145; 84484; 85007; 85025; 85651; 86140; 87040; 87070; 87077; 87186; 87205; 93005; 94760; 99285; C9803; J2543; J3370; J3475; U0003; U0005

== ENCOUNTER 2023-08-16 15:05 | Outpatient (CLI) | payer MEDICARE, BC, SELFPAY ==
[2023-08-16 15:31] LABS: Basophils # 0.8 K/mm3 (0-0.2); Basophils % 2.2 % (0.1-2.0); Eosinophils # 0.1 K/mm3 (0.0-0.4); Eosinophils % 0.2 % (0.1-12.0); Hematocrit 44.9 % (42.0-52.0); Hemoglobin 14.5 g/dL (14.1-18.0); Lymphocytes # 30.3 K/mm3 (0.7-4.5); Mean Corpuscular HGB Conc 32.3 g/dL (31.8-35.4); Mean Corpuscular Hemoglobin 30.7 pg (27.0-31.2); Mean Corpuscular Volume 95.2 fl (80-94); Mean Platelet Volume 7.6 fl (7.4-10.4); Monocytes # 0.4 K/mm3 (0.1-1.0); Monocytes % 1.2 % (1.7-9.3); Neutrophils # 4.5 K/mm3 (1.8-7.8); Platelet Count 111 K/mm3 (142-424); Red Blood Count 4.71 M/mm3 (4.60-6.20); Red Cell Distribution Width 13.7 % (11.5-17.5)
[2023-08-16 16:09] LABS: MANUAL DIFFERENTIAL MANUAL DIFFERENTIAL (MANUAL DIFF); Neutrophils % 12.4 % (37.0-80.0)
[2023-08-16 16:38] LABS: Chloride 105 mmol/L (98-107)
[2023-08-16 16:39] LABS: Potassium 4.5 mmoL/L (3.5-5.1); Sodium 138 mmol/L (136-145)
[2023-08-16 16:41] LABS: Alanine Aminotransferase 30 U/L (12-78); Albumin Level 3.7 g/dl (3.5-5.0); Alkaline Phosphatase 199 U/L (38-126); Anion Gap 11.5 mEq/L (5-15); Aspartate Amino Transferase 28 U/L (17-59); Bilirubin,Direct 0.2 mg/dl (0.0-0.4); Bilirubin,Indirect 0.5 mg/dL (0.0-0.9); Bilirubin,Total 0.7 mg/dl (0.2-1.3); Bilirubin,Unconjugated 0.4 mg/dL (0.0-1.1); Blood Urea Nitrogen 14 mg/dl (9-20); Calcium 9.5 mg/dl (8.4-10.2); Carbon Dioxide 26 mmol/L (22.0-30.0); Cholesterol 94 mg/dl (140-200); Estimated Glomerular Filt Rate 65 ml/min (>60); GFR (African American) 79 ML/MIN (>60); Total Protein,Serum 6.1 g/dl (6.3-8.2); Triglycerides 372 mg/dl (30-150); VLDL Cholesterol 74 mg/dL (0-40)
[2023-08-16 16:42] LABS: Chol/HDL Ratio 2.9 (1-3.5); HDL Cholesterol 32 mg/dl (40-60)
[2023-08-16 16:53] LABS: Direct LDL Cholesterol 42.17 mg/dL (100-129)
[2023-08-16 16:58] LABS: Free T4 (Free Thyroxine) 1.12 ng/dl (0.78-2.19)
[2023-08-16 17:01] LABS: Eosinophils % 1 % (0-3); Lymphocytes % 80 % (10-50); Monocytes % 2 % (2-9); Neutrophils % 17 % (42-76); Platelet Estimate Slight Decrease; Total Cells Counted 100
[2023-08-16 17:05] LABS: RBC Morphology Normal
[2023-08-16 17:12] LABS: Glucose 409 mg/dl (74-100); Thyroid Stimulating Hormone 3.29 uIU/mL (0.465-4.68)
[2023-08-16 17:13] LABS: Hemoglobin A1C 13.7 % (4.0-6.0)
== END 2023-08-16 23:59 | disposition home or self-care (01) ==
PROVIDERS: PCP Family Medicine; Visit Provider Nurse Practitioner Family
DX: E11.9 Type 2 diabetes mellitus without complications (principal); I11.9 Hypertensive heart disease without heart failure; I25.10 Atherosclerotic heart disease of native coronary artery without angina pectoris; E78.5 Hyperlipidemia, unspecified; Z95.5 Presence of coronary angioplasty implant and graft; R06.00 Dyspnea, unspecified; Z86.73 Personal history of transient ischemic attack (TIA), and cerebral infarction without residual deficits; Z79.84 Long term (current) use of oral hypoglycemic drugs; Z87.891 Personal history of nicotine dependence
CPT/HCPCS: 36415; 80048; 80061; 80076; 83036; 84439; 84443; 85007; 85025; 85027

== ENCOUNTER 2024-10-17 06:54 | Outpatient (CLI) | payer MEDICARE, BC, SELFPAY ==
--- OUTSIDE RECORDS SUMMARY | 2024-10-17 06:58 | XMS_ITS | Clinical Summary ---
Author Organization [facility] Address [address] [place] [address] Care Team Providers Care Print Press Operator Name Role Phone Mary Gauthier APRN Primary Care Provider Allergies No known active allergies Medications metFORMIN (GLUCOPHAGE) 500 MG tablet Take 1 tablet by mouth Daily With Breakfast. Active pravastatin (PRAVACHOL) 40 MG tablet Take 1 tablet by mouth Daily. Active carvedilol (COREG) 25 MG tablet 1 tablet 2 (Two) Times a Day With Meals. 8 Active amLODIPine (NORVASC) 5 MG tablet Take 1 tablet by mouth Daily. for blood pressure 1 Active glipizide (GLUCOTROL XL) 5 MG ER tablet Take 1 tablet by mouth 2 (Two) Times a Day With Meals. 1 Active hydrALAZINE (APRESOLINE) 50 MG tablet TAKE 1 TABLET BY MOUTH THREE TIMES DAILY FOR HYPERTENSION 1 Active montelukast (SINGULAIR) 10 MG tablet TAKE 1 TABLET BY MOUTH IN THE EVENING FOR HAYFEVER 1 Active Dilt-XR 180 MG 24 hr capsule Take 1 capsule by mouth Daily. 2 Active clopidogrel (PLAVIX) 75 MG tablet Take 1 tablet by mouth Daily. 3 Active isosorbide mononitrate (IMDUR) 30 MG 24 hr tablet Take 1 tablet by mouth Every Morning. 3 Active metoprolol succinate XL (TOPROL-XL) 100 MG 24 hr tablet Take 1 tablet by mouth Daily. 3 Active Xarelto 2.5 MG tablet Take 1 tablet by mouth 2 (Two) Times a Day With Meals. 3 Active rosuvastatin (CRESTOR) 40 MG tablet Take 1 tablet by mouth Daily. 3 Active Ozempic, 0.25 or 0.5 MG/DOSE, 2 MG/3ML solution pen-injector Inject 0.25 mg every week by subcutaneous route for 30 days, for 8 weeks then increase to 0.5 mg. 4 Active losartan (COZAAR) 50 MG tablet Take 1 tablet by mouth Daily. 4 Active Active Problems Problem Noted Date Diagnosed Date Diabetes mellitus 07/26/2016 Hypertension 07/26/2016 CLL (chronic lymphocytic leukemia) 09/22/2015 Overview (07/26/2016): Stage 0, originally diagnosed 06/2011 Social History Tobacco Use Types Packs/Day Years Used Date Smoking Tobacco: Former Smokeless Tobacco: Current Chew Tobacco Cessation:Ready to Q uit: Not Asked; Counseling Given: Not Answered Alcohol Use Standard Drinks/Week Comments Yes 0 (1 standard drink = 0.6 oz pur e alcohol) Rarely PHQ-2 Answer Date Recorded Retired PHQ-9: Brief Depression Severity Measure Score 0 10/14/2022 Abuse Screen Answer Date Recorded Unsafe at Home or Work/School Not on file Feels Threatened by Someone? Not on file 11/2022 Does Anyone Keep You from Co ntacting Others or Doint Things Outside the Home? Not on file 12/19/2022 Physical Sign of Abuse Present Not on file 1 Housing Stability Answer Date Recorded Current Living Arrangements Not on file 11/2022 Potentially Unsafe Housing Conditions Not on ion e 12/19/2022 Family and Community Support Answer José e Recorded Help with Day-to-Day Activities Not on file 12/19/2022 Lonely or Isolated Not on file 12/19/2022 Employment Answer Date Recorded Do you want help finding or keeping work or a heather b? Not on file 12/19/2022 Disabilities Answer Date Recorded Concentrating, Remembering, or Making Decisions Difficulty Not on file 12/19/2022 Doing Errands Independently Difficulty Not on fi le 12/19/2022 Education Answer Date Recorded Help with school or training? Not on file Preferred Language Not on file 12/19/2022 PHQ-2 Answer Date Recorded Retired PHQ-9: Brief Depression Severity Measure Score 0 10/13/2023 Sex and Gender Information Value Date Recorded Sex Assigned at Not on file Legal Sex Male 1:22 PM EDT Gender Identity Not on file Sexual Orientation Not on file Last Filed Vital Signs Vital Sign Reading Time Taken Comments Blood Pressure 166/85 10/13/2023 10:34 AM EDT Pulse 61 10/13/2023 10:34 AM EDT Temperature 36.2 C (97.2 F) 10/13/2023 10:34 AM EDT Respiratory Rate 18 10/13/2023 10:34 AM EDT Oxygen Saturation 97% 10/13/2023 10:34 AM EDT Inhaled Oxygen Concentration - - Weight 119 kg (263 lb 6.4 oz) 10/13/2023 10:34 A M EDT Height 185.4 cm (6' 0.99 ) 10/13/2023 10:37 AM E DT Body Mass Index 34.76 10/13/2023 10:34 AM EDT Plan of Treatment Upcoming Encounters Date Type Department Care Team (Late st Contact Info) Description 10/25/2024 10:00 AM EDT Office Visit [facility] HEM[facility] [address] [facility] [address] [place] [phone] Mayra Hsu APRN [address] [facility] [address] [place] [address] Health Maintenance Due Date Last Done Comments DIABETIC EYE EXAM 1958 DIABETIC FOOT EXAM 1958 URINE MICROALBUMIN-CREATININ E RATIO (uACR) 1958 ZOSTER VACCINE (1 of 2) 10/19/1967 COLOGUARD 1993 COLON CANCER SCREENING 5 YEA R SIGMOIDOSCOPY 1993 COLONOSCOPY 1993 [address] CANCER SCREENING 1993 CT COLONOGRAPHY 1993 FECAL OCCULT BLOOD TEST 1993 FIT Testing (1 year) 1993 TDAP/TD VACCINES (1 - Tdap) 06/03/2011 06/02/2011 AAA SCREEN ONCE 2013 ANNUAL WELLNESS VISIT 07/26/2016 HEMOGLOBIN A1C 07/26/2016 HEPATITIS C SCREENING 07/26/2016 COVID-19 Vaccine (3 - Modern a risk series) 12/21/2020 11/23/2020, 10/26/2020 RSV Vaccine - Adults (1 - 1- dose 75+ series) 10/19/2023 INFLUENZA VACCINE 12/11/2024 Pneumococcal Vaccine 50+ Completed 021, 09/23/2015, 03/31/2014 Insurance MEDICARE A & B Care Teams Print Press Operator Relationship Specialty Start Date End Date Mary Gauthier APRN PCP - General Nurse Practitioner 10/15/21
--- OUTSIDE RECORDS SUMMARY | 2024-10-17 06:58 | XMS_ITS | Encounter Summary ---
Author Organization [facility] Address [address] [place] [address] Care Team Providers Care Telesales Advisor Name Role Phone Mary Vasquez APRN Primary Care Provider [phone] Encounter Details Date Type Department Care Team (Late st Contact Info) Description 06/23/2011 Conversion Encounter [facility] HISTORICAL CONV [address] [place] [address] Interface, See Report Social History Tobacco Use Types Packs/Day Years Used Date Smoking Tobacco: Never Assessed Sex and Gender Information Value Date Recorded Sex Assigned at Not on file Legal Sex Male 1:22 PM EDT Gender Identity Not on file Sexual Orientation Not on file documented as of this encounter H&P Notes * Interface, See Report - 06/23/2011 1:05 PM EDT Qamar Olmstead M.D. ' Becca Ortega M.D. ' Edmundo Sheikh M.D. ' BETTYE Lockett M.D. ' Sarina Mann M.D. ' Marianne Hines APRN [facility] [facility], [address] [place] [address] [facility] NEW PATIENT EVALUATION BENITO VASQUEZ : 1950 DATE OF VISIT: 06/24/2011 CONSULTING PHYSICIAN: Dr. Hernán Jacobsen PROBLEMS: 1. Chronic lymphocytic leukemia, newly diagnosed. 2. Hypertension. 3. Diabetes. HISTORY: This is a 60-year-old white male who was noted recently to have a persistent lymphocytosis. His white blood count in 2010 was 14,000 and his white blood count most recently was 27,000 with a predominance of lymphocytes, He generally has been asymptomatic. He does have some recent symptoms in the last couple of days with hoarseness, cough, and mild rhinorrhea. His daughter has just been experiencing a similar illness and he has not had any fevers, chills, sweats, or purulent sputum. PAST MEDICAL HISTORY: SURGERIES: None. MEDICAL ILLNESSES: 1. Diabetes. 2. Hypertension. MEDICATIONS: 1. Tenoretic. 2. Metformin. 3. Lotrel. 4. Pravastatin. ALLERGIES: No known drug allergies. BENITO VASQUEZ : 1950 DATE OF VISIT: 06/24/2011 SOCIAL HISTORY: He lives in [place] with his and [id number]. He does not smoke cigarettes. He stopped over 20 years ago. FAMILY HISTORY: His mother at 46 from what he thinks was a ruptured appendix although there was evidently a question of some cancer diagnosis. Father is alive at 88. He has been treated for prostate cancer. He does have hypertension. The patient does have two siblings with hypertension also. REVIEW OF SYSTEMS: The review of systems page was discussed with him and is attached to the record. He describes some dyspnea with exertion that is thought to be mostly deconditioning. He had some change in moles but I think some of these are skin tags as noted in the physical examination. He has some increased urinary frequency with nocturia x1. He has had some swelling around one ankle after a hematoma in the past. PHYSICAL EXAMINATION: GENERAL: Healthy appearing, but overweight adult male. VITAL SIGNS: Afebrile. Vital signs acceptable. HEENT: Sclerae are anicteric. Extraocular movements intact. Pupils equal, round, reactive to light. Oral mucosa is pink without ulcers or sivakumar. NECK: Supple. I cannot feel any thyroid abnormalities. HEART: Regular rhythm and rate. LUNGS: No rub, crackles or wheezes. ABDOMEN: Soft without masses or organomegaly. EXTREMITIES: Without edema or cords. Joints are without erythema or effusion. SKIN: No rashes or purpura. He does have some moles and some skin tags around of both axillae. NODES: There were no cervical, supraclavicular or inguinal nodes felt. NEUROLOGIC: He is alert and answers all questions appropriately. He moves all extremities normally. He has normal strength and normal gait and station. LABS: His white blood count was 27,000 with normal hemoglobin and platelets. His flow cytometry results were consistent with CLL showing a population that marked positive for CD5 and CD23. BENITO VASQUEZ : 1950 DATE OF VISIT: 06/24/2011 IMPRESSION: Chronic lymphocytic leukemia. He has good evidence of stage 0 CLL. PLAN: 1. Since he does not require any treatment at present we will monitor him at regular intervals. 2. I will ask him to check a CBC in two months. 3. Return in four months. 4. I did explain to Mr. Vasquez and his that he does have some impairment of his immune system and that bacterial infections or febrile illnesses should be treated immediately. Becca Ortega M.D.* RME/rxalw Doc. ID [id number] Rev. #0 cc: Hernán Jacobsen M.D.* Page 3 of 3 Page 1 of 3 Authenticated by BECCA ORTEGA M.D. On 07/13/2011 12:55:42 PM documented in this encounter Plan of Treatment Upcoming Encounters Date Type Department Care Team (Late st Contact Info) Description 10/25/2024 10:00 AM EDT Office Visit [facility] [address] [facility] [address] [place] [address] Mayra Hsu APRN [address] [facility] [address] [place] [address] documented as of this encounter Visit Diagnoses Not on filedocumented in this encounter Care Teams Telesales Advisor Relationship Specialty Start Date End Date Mary Vasquez APRN PCP - General Nurse Practitioner 10/15/21 documented as of this encounter
--- OUTSIDE RECORDS SUMMARY | 2024-10-17 06:58 | XMS_ITS | Encounter Summary ---
[facility] Address [address] [place] [address] Care Team Providers Care Educational Technologist Name Role Phone Mary Vasquez APRN Primary Care Provider [phone] Encounter Details Date Type Department Care Team (Late st Contact Info) Description 10/20/2011 Conversion Encounter [facility] HISTORICAL CONV [address] [place] [address] Interface, See Report Social History Tobacco Use Types Packs/Day Years Used Date Smoking Tobacco: Never Assessed Sex and Gender Information Value Date Recorded Sex Assigned at Not on file Legal Sex Male 1:22 PM EDT Gender Identity Not on file Sexual Orientation Not on file documented as of this encounter H&P Notes * Interface, See Report - 10/20/2011 4:48 PM EDT Qamar Olmstead M.D. ' Becca Ortega M.D. ' Edmundo Sheikh M.D. ' BETTYE Lockett M.D. ' Sarina Mann M.D. ' Marianne Hines APRN [facility], [address] [place] [address] [facility] BENITO VASQUEZ : 1950 DATE OF VISIT: 10/20/2011 PROBLEM LIST: 1. Chronic lymphocytic leukemia. 2. Diabetes. HISTORY: Mr. Vasquez has generally done well since his last visit. He has not had any fevers, sweats, or other symptoms of infection. No palpable nodes or unusual fatigue. He has had a gradual desired weight loss and he has been monitoring his diabetes more closely. REVIEW OF SYSTEMS: No cough, wheezing, or dyspnea. No dysuria or hematuria. PHYSICAL EXAM: GENERAL: He looks well. VITAL SIGNS: Afebrile. Vital signs acceptable. HEENT: Sclerae anicteric. Oral mucosa normal. HEART: Regular rhythm and rate. LUNGS: Without rub, crackles or wheezes. ABDOMEN: Soft without masses, organomegaly. EXTREMITIES: Without edema or cords. NODES: There were no lymph nodes felt. LABS: His labs in August showed white count 24,000 with normal hemoglobin and platelets. He had a normal ANC. IMPRESSION: Chronic lymphocytic leukemia, this is still stage 0. It does not appear to be rapidly progressing. BENITO VASQUEZ : 1950 DATE OF VISIT: 10/20/2011 PLAN: 1. I will check a CBC with differential today and will ask him to do this again in three months. 2. I will have him return in six months. 3. If he is not showing rapid progression or rapid doubling at that point then I will monitor him less frequently for the next couple of years. Becca Ortega M.D.* RME/rxalw Doc. ID [id number] Rev. #0 cc: Hernán Jacobsen M.D.* Page 2 of 2 Page 1 of 2 Authenticated by BECCA ORTEGA M.D. On 10/26/2011 06:26:49 PM * Interface, See Report - 10/20/2011 4:48 PM EDT Qamar Olmstead M.D. ' Becca Ortega M.D. ' Edmundo Sheikh M.D. ' BETTYE Lockett M.D. ' Tad Mcallister M.D. ' Sarina Mann M.D. ' Marianne Hines APRN [address] [place] [address] [place] [address] [facility] OFFICE NOTE BENITO VASQUEZ : 1950 DATE OF VISIT: 04/26/2012 PROBLEM LIST: CLL, stage 0. HISTORY: Mr. Vasquez has not had any fevers, sweats, palpable nodes, or any unusual recurring infections. No nose bleeding, gum bleeding, or unusual bruising. No abdominal pain or distention to suggest splenomegaly. He has not had any recent medication changes. He does follow up regularly with Dr. Jacobsen. REVIEW OF SYSTEMS: As in the present illness. No cough, wheezing, or dyspnea. PHYSICAL EXAM: GENERAL: He looks well. HEENT: Sclerae anicteric. Oral mucosa normal. HEART: Regular rhythm and rate. LUNGS: Without rub, crackles or wheezes. ABDOMEN: Soft without masses or organomegaly. EXTREMITIES: Without edema or cords. LYMPH: There were no cervical, supraclavicular, axillary or inguinal lymph nodes felt. LABORATORY DATA: A CBC from March 15 showed white count 30, hemoglobin 14.7, platelets normal at 179,000. He had an absolute neutrophil count of 6.4 which was normal. IMPRESSION: Chronic lymphocytic leukemia. He is showing no evidence of rapid progression and he does not have any symptoms. BENITO VASQUEZ : 1950 DATE OF VISIT: 04/26/2012 PLAN: 1. We will continue to monitor him at regular intervals. 2. I will ask him simply check a CBC and return here in six months. 3. I did remind him to notify us for any unusual or recurring infections. Becca Ortega M.D.* RME/rxdrs Doc. ID [id number] Rev. #0 cc: Hernán Jacobsen M.D.* Page 2 of 2 Page 1 of 2 Authenticated by BECCA ORTEGA M.D. On 05/04/2012 05:49:48 PM * Interface, See Report - 10/20/2011 4:48 PM EDT Qamar Olmstead M.D. ' Becca Ortega M.D. ' Edmundo Sheikh M.D. ' BETTYE Lockett M.D. ' Tad Mcallister M.D. ' Sarina Mann M.D. ' Marianen Hines APRN [facility], [facility] [address] [place] [address] [facility] OFFICE NOTE BENITO VASQUEZ : 1950 DATE OF VISIT: 10/04/2012 PROBLEM LIST: CLL, Stage 0. CHIEF COMPLAINT: Here for follow-up. HISTORY: Mr. Vasquez has not had any sweats, fevers, unusual or recurring infections. He has not had any recent medication changes. He did see Dr. Jacobsen recently and he is following up with him about his hypertension. He has not had any abdominal pain or distention to suggest splenomegaly. REVIEW OF SYSTEMS: As in the present illness. No cough, wheezing, or dyspnea. MEDICATIONS: His medication list was examined and medication reconciliation for the patient has been reviewed in the electronic medical record. PHYSICAL EXAMINATION: GENERAL: He is comfortable appearing. HEENT: Sclerae anicteric. Oral mucosa is normal. HEART: Regular rhythm and rate. LUNGS: No rub, crackles or wheezes. ABDOMEN: Soft without masses or organomegaly. EXTREMITIES: Without edema or cords. NODES: There were no lymph nodes felt. LABS: CBC from October 01, 2012 showed white count 31.3, hemoglobin 14.8, platelets 185,000. The absolute neutrophil count was 6.6 which was normal. Absolute lymphocyte count was 23.2, which is similar to prior values. IMPRESSION: Stage 0 CLL. He has no symptoms or other indications for treatment. PLAN: 1. We will continue to monitor him. Since he has had relatively indolent disease we should be able to monitor him less frequently. 2. I have asked him to check a CBC in six months and return here in one year. 3. I did remind him to report fevers immediately and I would plan to treat him empirically with antibiotics if he did develop any febrile illnesses. Becca Ortega M.D.* RME/rxalw Doc. ID [id number] Rev. #0 cc: Hernán Jacobsen M.D.* BENITO VASQUEZ : 1950 DATE OF VISIT: 10/04/2012 Page 2 of 2 Page 1 of 2 DOCUMENT CODE :[facility]: PHYSICIAN CODE :[id number]: Authenticated by BECCA ORTEGA M.D. On 10/17/2012 05:42:54 PM documented in this encounter Plan of Treatment Upcoming Encounters Date Type Department Care Team (Late st Contact Info) Description 10/25/2024 10:00 AM EDT Office Visit [facility] [address] [place] [address] [address] [place] [address] Mayra Hsu, FORESTRY LABORER [address] [facility] [address] [place] [address] documented as of this encounter Visit Diagnoses Not on filedocumented in this encounter Care Teams Educational Technologist Relationship Specialty Start Date End Date Mary Vasquez APRN PCP - General Nurse Practitioner 10/15/21 documented as of this encounter
[2024-10-17 07:48] LABS: Hematocrit 40.7 % (42.0-52.0); Hemoglobin 13.9 g/dL (14.1-18.0); Immature Granulocytes % 0.2 %; Mean Corpuscular HGB Conc 34.2 g/dL (31.8-35.4); Mean Corpuscular Hemoglobin 30.6 pg (27.0-31.2); Mean Corpuscular Volume 89.6 fl (80-94); Nucleated Red Blood Cells % 0 %; Platelet Count 116 K/mm3 (142-424); Red Blood Count 4.54 M/mm3 (4.60-6.20); Red Cell Distribution Width-SD 42.5 fL
[2024-10-17 08:21] LABS: Albumin Level 4.0 g/dl (3.5-5.0)
[2024-10-17 08:24] LABS: Alanine Aminotransferase 57 U/L (12-78); Alkaline Phosphatase 341 U/L (38-126); Aspartate Amino Transferase 63 U/L (17-59); Bilirubin,Direct 0.3 mg/dl (0.0-0.4); Bilirubin,Indirect 0.6 mg/dL (0.0-0.9); Bilirubin,Total 0.9 mg/dl (0.2-1.3); Bilirubin,Unconjugated 0.6 mg/dL (0.0-1.1); Cholesterol 81 mg/dl (140-200); HDL Cholesterol 28 mg/dl (40-60); Total Protein,Serum 6.3 g/dl (6.3-8.2); Triglycerides 206 mg/dl (30-150)
[2024-10-17 08:31] LABS: White Blood Count 40.7 K/mm3 (4.8-10.8)
[2024-10-17 09:33] LABS: RBC Morphology Normal; Total Cells Counted 100
== END 2024-10-17 23:59 | disposition home or self-care (01) ==
LOC: LAB 06:57
PROVIDERS: Nurse Practitioner Family; PCP Emergency Medicine; Visit Provider Nurse Practitioner Family
DX: I25.10 Atherosclerotic heart disease of native coronary artery without angina pectoris (principal); I10 Essential (primary) hypertension; C91.10 Chronic lymphocytic leukemia of B-cell type not having achieved remission
CPT/HCPCS: 36415; 80061; 80076; 85007; 85025